=== PATIENT | male | born 1990 | race Caucasian/White ===

== ENCOUNTER 2017-07-01 20:41 | Inpatient (IN) | payer OTHER ==
[~2017-07-01] VITALS: Ht 170.2 cm; Wt 199.6 kg
[2017-07-01 21:07] VITALS: BP 129/65
--- NOTE | 2017-07-01 21:36 | Emergency Room Report ---
History of Present Illness General Chief Complaint: Nausea, Vomiting, and Diarrhea Source: Patient Present Illness HPI Patient is a 26 year-old male who presented after increased nausea and vomiting and diarhea. Patient stopped using heroin one week ago. Recently started new medications. Patient was noted to have increased fever associated with difficulty breathing. He reported having increased fever and body aches. He normally uses CPAP. Allergies: Coded Allergies: No Known Allergies (Unverified , 07/01/17) Patient History Reviewed Nursing Documentation: PMH: Agreed, PSxH: Agreed Nursing Documentation-PMH History Of Psychiatric Problem: Yes - anxiety, panic attack, depression Review of Systems All Other Systems: negative except mentioned in HPI Physical Exam Vital Signs Date Time Temp Pulse Resp B/P (MAP) Pulse Ox O2 Delivery O2 Flow Rate FiO2 07/01/17 20:48 98.8 129 28 129/65 89 Room Air Sp02 EP Interpretation: reviewed, normal General Appearance: normal inspection, alert, GCS 15, moderate distress, obese , Chronically Ill Head: atraumatic ENT: normal ENT inspection, hearing grossly normal, normal voice Neck: normal inspection, full range of motion, supple, no bony tend Respiratory: normal inspection, lungs clear, normal breath sounds, no retraction, no wheezing Cardiovascular #1: regular rate, rhythm, no edema Gastrointestinal: normal inspection, normal bowel sounds, non tender, soft, no guarding, no hernia Genitourinary: no CVA tenderness Musculoskeletal: normal inspection, back normal, normal range of motion, swelling - bilateral edema Neurologic: normal inspection, alert, oriented x3, responsive, breakfast host III-XII nml as tested, speech normal Psychiatric: normal inspection, judgement/insight normal, mood/affect normal Skin: other - bilateral lower extremity erythemas, some pustules Medical Decision Making Diagnostic Impression: Primary Impression: Cellulitis Additional Impression: Hx of opioid abuse ER Course Patient presented for abdominal pain. Differential diagnoses included opiate withdrawal, ischemic bowel, appendicitis, perforated viscus, abdominal aortic aneurysm, inferior myocardial infarction, viral gastroenteritis. Because of complexity of patient's case laboratory testing and imaging studies were ordered. Laboratory studies showed normal white blood count. Patient was noted to have a fever up to 1 emergency department. He was noted to have some erythema and warmth both lower extremities worse on the right. The patient was started on IV fluids as well as IV antibiotics. He was given Tylenol. The patient was noted to have sleep apnea and started on CPAP. Patient was noted to be persistently tachycardic. Dr. Dereje Martin was contacted for inpatient management Labs Test 07/02/17 00:20 White Blood Count 6.4 K/UL (4.8-10.8) Red Blood Count 4.80 M/UL (4.70-6.10) Hemoglobin 13.6 G/DL (14.2-18.0) Hematocrit 41.6 % (42.0-52.0) Mean Corpuscular Volume 87 FL (80-99) Mean Corpuscular Hemoglobin 28.3 PG (27.0-31.0) Mean Corpuscular Hemoglobin Concent 32.7 G/DL (32.0-36.0) Red Cell Distribution Width 13.8 % (11.6-14.8) Platelet Count 200 K/UL (150-450) Mean Platelet Volume 7.2 FL (6.5-10.1) Neutrophils (%) (Auto) % (45.0-75.0) Lymphocytes (%) (Auto) % (20.0-45.0) Monocytes (%) (Auto) % (1.0-10.0) Eosinophils (%) (Auto) % (0.0-3.0) Basophils (%) (Auto) % (0.0-2.0) Sodium Level 140 MMOL/L (136-145) Potassium Level 2.8 MMOL/L (3.5-5.1) Chloride Level 100 MMOL/L (98-107) Carbon Dioxide Level 31 MMOL/L (21-32) Anion Gap 10 mmol/L (5-15) Blood Urea Nitrogen 22 mg/dL (7-18) Creatinine 0.8 MG/DL (0.55-1.30) Estimat Glomerular Filtration Rate > 60 mL/min (>60) Glucose Level 128 MG/DL (74-106) Calcium Level 8.1 MG/DL (8.5-10.1) Total Bilirubin 0.4 MG/DL (0.2-1.0) Aspartate Amino Transf (AST/SGOT) 49 U/L (15-37) Alanine Aminotransferase (ALT/SGPT) 60 U/L (12-78) Alkaline Phosphatase 75 U/L (46-116) Total Protein 6.6 G/DL (6.4-8.2) Albumin 2.9 G/DL (3.4-5.0) Globulin 3.7 g/dL Albumin/Globulin Ratio 0.8 (1.0-2.7) Last Vital Signs Date Time Temp Pulse Resp B/P (MAP) Pulse Ox O2 Delivery O2 Flow Rate FiO2 07/01/17 21:07 98.8 113 28 129/65 89 Room Air Status: unchanged Disposition: ADMITTED INPATIENT Condition: Serious Tha Garnica Jul 01, 2017 21:36
[2017-07-01] MEDS ORDERED: cefTRIAXone 1 GM in NS 55 ML IVPB ONE (23:15)
[2017-07-01] MEDS ORDERED: Albuterol/Ipratropium 3ml neb HHN ONE (23:15)
[2017-07-01] MEDS ORDERED: Albuterol/Ipratropium 3ml neb ONE (23:21)
[2017-07-01] MEDS ORDERED: SERTRALINE HCL25 MG ORAL (23:24)
[2017-07-01] MEDS ORDERED: CATAPRES0.1 MG ORAL (23:24)
[2017-07-01] MEDS ORDERED: QUETIAPINE FUMA50 MG ORAL (23:24)
[2017-07-01] MEDS ORDERED: GABAPENTIN300 MG ORAL (23:24)
[2017-07-01] MEDS ORDERED: MAPAP325 MG/10. PO (23:24)
[2017-07-01] MEDS ORDERED: HYDROXYZINE HCL25 M1 PO (23:24)
[2017-07-01] MEDS ORDERED: BACLOFEN10 MG ORAL (23:24)
[2017-07-01] MEDS ORDERED: NAPROXEN500 M2 ORAL (23:24)
[2017-07-01] MEDS ORDERED: Vancomycin 1 GM in D5W 275 ML IVPB SCH (23:30)
[2017-07-01 23:43] VITALS: BP 117/45
[2017-07-02] VITALS (7 sets, daily range): BP systolic 105–134; BP diastolic 35–71
[2017-07-02] MEDS ORDERED: Miralax 17gm pkt ORAL PRN
[2017-07-02] MEDS ORDERED: Nitroglycerin Subl 0.4mg tab SL PRN
[2017-07-02] MEDS ORDERED: Albuterol/Ipratropium 3ml neb HHN PRN
[2017-07-02] MEDS ORDERED: Morphine Sulfate 2mg/ml Inj IVP PRN
[2017-07-02] MEDS ORDERED: Vancomycin 1.5gm/D5W 250ml 250 ML IVPB ONE (00:27)
[2017-07-02] MEDS ORDERED: Vancomycin 1 GM in D5W 275 ML IV SCH (00:30)
[2017-07-02 00:43] LABS: HEMATOCRIT 41.6 % (42.0-52.0); HEMOGLOBIN 13.6 G/DL (14.2-18.0); MEAN CORPUSCULAR VOLUME 87 FL (80-99); PLATELET COUNT 200 K/UL (150-450); RED CELL DISTRIBUTION WIDTH 13.8 % (11.6-14.8); WHITE BLOOD COUNT 6.4 K/UL (4.8-10.8)
[2017-07-02 00:52] LABS: ALANINE AMINOTRANSFERASE 60 U/L (12-78); ALBUMIN 2.9 G/DL (3.4-5.0); ALBUMIN/GLOBULIN RATIO 0.8 (1.0-2.7); ALKALINE PHOSPHATASE 75 U/L (46-116); ANION GAP 10 mmol/L (5-15); ASPARTATE AMINO TRANSFERASE 49 U/L (15-37); BILIRUBIN,TOTAL 0.4 MG/DL (0.2-1.0); BLOOD UREA NITROGEN 22 mg/dL (7-18); CALCIUM 8.1 MG/DL (8.5-10.1); CARBON DIOXIDE 31 MMOL/L (21-32); CHLORIDE 100 MMOL/L (98-107); CREATININE 0.8 MG/DL (0.55-1.30); POTASSIUM 2.8 MMOL/L (3.5-5.1); SODIUM 140 MMOL/L (136-145)
[2017-07-02 01:34] LABS: APPEARANCE,URINE CLEAR; BILIRUBIN, URINE NEGATIVE (NEGATIVE); GLUCOSE, URINE (UA) NEGATIVE (NEGATIVE); KETONES,URINE NEGATIVE (NEGATIVE); LEUKOCYTE ESTERASE ,URINE NEGATIVE (NEGATIVE); NITRITE,URINE NEGATIVE (NEGATIVE); PH,URINE 6 (4.5-8.0); PROTEIN,URINE NEGATIVE (NEGATIVE); UROBILINOGEN,URINE NORMAL MG/DL (0.0-1.0)
[2017-07-02 01:41] LABS: COLOR,URINE YELLOW
[2017-07-02 02:17] LABS: HEMATOCRIT 41.5 % (42.0-52.0); HEMOGLOBIN 13.4 G/DL (14.2-18.0); MEAN CORPUSCULAR VOLUME 87 FL (80-99); RED BLOOD COUNT 4.79 M/UL (4.70-6.10); WHITE BLOOD COUNT 6.7 K/UL (4.8-10.8)
[2017-07-02 02:18] LABS: PLATELET COUNT 205 K/UL (150-450); RED CELL DISTRIBUTION WIDTH 13.9 % (11.6-14.8)
[2017-07-02 02:19] LABS: CARBON DIOXIDE 32 MMOL/L (21-32); CHLORIDE 101 MMOL/L (98-107); POTASSIUM 3.1 MMOL/L (3.5-5.1); SODIUM 141 MMOL/L (136-145)
[2017-07-02 02:20] LABS: ALANINE AMINOTRANSFERASE 62 U/L (12-78); ANION GAP 8 mmol/L (5-15); ASPARTATE AMINO TRANSFERASE 51 U/L (15-37); BILIRUBIN,TOTAL 0.5 MG/DL (0.2-1.0); BLOOD UREA NITROGEN 23 mg/dL (7-18); CALCIUM 8.5 MG/DL (8.5-10.1); CREATININE 0.9 MG/DL (0.55-1.30)
[2017-07-02 02:21] LABS: ALKALINE PHOSPHATASE 76 U/L (46-116)
[2017-07-02] MEDS: Cefepime HCl 2 GM in NS 110 ML IV SCH ×2 (08:25→20:48)
[2017-07-02] MEDS: Heparin 5000 units/ml inj SUBQ SCH ×2 (08:29→20:49)
[2017-07-02] MEDS: Sertraline 100mg tab ORAL SCH (08:29)
[2017-07-02] MEDS: Vancomycin 2gm/D5W 550ml IVPB SCH ×4 (09:41→17:07)
[2017-07-02] MEDS ORDERED: ALPRAZolam 0.5mg tab ORAL PRN (14:00)
--- NOTE | 2017-07-02 14:17 | Diagnostic Imaging Report ---
Indication: Dyspnea Comparison: None A single view chest radiograph was obtained. Findings: Cardiomediastinal appearance is within normal limits for age. Pulmonary vascularity is appropriate. The diaphragmatic contour is smooth and costophrenic angles are sharp. No pleural effusions are identified. The bones are unremarkable. Impression: No acute findings
--- NOTE | 2017-07-02 16:15 | Consultation ---
History of Present Illness General Date patient seen: Jul 02, 2017 Time patient seen: 16:09 Chief Complaint: Nausea, Vomiting, and Diarrhea Present Illness HPI 26 y/o M with hx of Anxiety, panic attacks, MDD, morbid obesity, SADA on CPAP presents to ED on 07/01 with worsening nausea, vomiting and dairrhea. Also fever, SOB, body aches. OF note, he reported stop using heroin 1 week ago. Denies cough, runny nose, rash, GAMEZ, urinary symptoms. Allergies: Coded Allergies: No Known Allergies (Unverified , 07/01/17) Medication History Scheduled Acetaminophen (Mapap), 325 MG PO Q6HR, (Reported) Baclofen* (Baclofen*), 20 MG ORAL THREE TIMES A DAY, (Reported) Clonidine Hcl* (Catapres*), 0.1 MG ORAL EVERY 6 HOURS, (Reported) Gabapentin* (Gabapentin*), 300 MG ORAL THREE TIMES A DAY, (Reported) Hydroxyzine Hcl (Hydroxyzine Hcl), 25 MG PO Q6HR, (Reported) Naproxen* (Naproxen*), 500 MG ORAL ONCE, (Reported) Quetiapine Fumarate* (Quetiapine Fumarate*), 100 MG ORAL DAILY, (Reported) Sertraline Hcl* (Sertraline Hcl*), 100 MG ORAL DAILY, (Reported) Patient History Healthcare decision maker Resuscitation status Full Code Advanced Directive on File Patient History Narrative Pmhx: as above Sh: reviewed Fhx: non contributory Review of Systems All Other Systems: negative except mentioned in HPI Physical Exam Physical Exam Narrative General Appearance: normal inspection, alert,morbidly obese, Chronically Ill Head: atraumatic ENT: normal ENT inspection, hearing grossly normal, normal voice Neck: normal inspection, full range of motion, supple, no bony tend Respiratory: normal inspection, lungs clear, normal breath sounds, no retraction, no wheezing Cardiovascular regular rate, rhythm, no edema Gastrointestinal: normal inspection, normal bowel sounds, non tender, soft, no guarding, no hernia Genitourinary: no CVA tenderness Musculoskeletal: normal inspection, back normal, normal range of motion, swelling - bilateral edema Skin: other - bilateral lower extremity erythemas, some pustules Last 24 Hour Vital Signs Date Time Temp Pulse Resp B/P (MAP) Pulse Ox O2 Delivery O2 Flow Rate FiO2 07/02/17 12:26 128/71 07/02/17 12:00 79 07/02/17 12:00 98.3 85 19 129/63 95 07/02/17 08:00 84 07/02/17 08:00 97.5 88 19 123/71 96 07/02/17 06:23 128/62 07/02/17 05:52 89 07/02/17 04:00 97.7 95 22 127/54 95 07/02/17 03:25 98.7 96 16 134/58 98 Nasal Cannula 2.0 30 07/02/17 03:15 98.7 96 16 134/58 98 Nasal Cannula 2.0 07/02/17 01:45 101 16 125/53 96 15.0 07/02/17 01:27 70 16 Bi-pap 07/02/17 01:27 105 14 98 Facial 30 07/01/17 23:45 115 20 97 Room Air 21 07/01/17 23:43 101.2 110 17 117/45 92 Room Air 07/01/17 23:30 110 20 92 Room Air 21 07/01/17 22:18 139/56 07/01/17 21:07 98.8 113 28 129/65 89 Room Air 07/01/17 20:48 98.8 129 28 129/65 89 Room Air Intake and Output 07/01/17 07/02/17 19:00 07:00 Intake Total 1330 ml Balance 1330 ml Intake Oral 0 ml IV Total 1330 ml Laboratory Tests Test 07/01/17 21:19 07/01/17 23:22 07/02/17 00:20 07/02/17 01:00 White Blood Count 6.7 K/UL (4.8-10.8) 6.4 K/UL (4.8-10.8) Red Blood Count 4.79 M/UL (4.70-6.10) 4.80 M/UL (4.70-6.10) Hemoglobin 13.4 G/DL (14.2-18.0) L 13.6 G/DL (14.2-18.0) L Hematocrit 41.5 % (42.0-52.0) L 41.6 % (42.0-52.0) L Mean Corpuscular Volume 87 FL (80-99) 87 FL (80-99) Mean Corpuscular Hemoglobin 28.0 PG (27.0-31.0) 28.3 PG (27.0-31.0) Mean Corpuscular Hemoglobin Concent 32.3 G/DL (32.0-36.0) 32.7 G/DL (32.0-36.0) Red Cell Distribution Width 13.9 % (11.6-14.8) 13.8 % (11.6-14.8) Platelet Count 205 K/UL (150-450) 200 K/UL (150-450) Mean Platelet Volume 7.9 FL (6.5-10.1) 7.2 FL (6.5-10.1) Neutrophils (%) (Auto) % (45.0-75.0) % (45.0-75.0) Lymphocytes (%) (Auto) % (20.0-45.0) % (20.0-45.0) Monocytes (%) (Auto) % (1.0-10.0) % (1.0-10.0) Eosinophils (%) (Auto) % (0.0-3.0) % (0.0-3.0) Basophils (%) (Auto) % (0.0-2.0) % (0.0-2.0) Sodium Level 141 MMOL/L (136-145) 140 MMOL/L (136-145) Potassium Level 3.1 MMOL/L (3.5-5.1) L 2.8 MMOL/L (3.5-5.1) L Chloride Level 101 MMOL/L (98-107) 100 MMOL/L (98-107) Carbon Dioxide Level 32 MMOL/L (21-32) 31 MMOL/L (21-32) Anion Gap 8 mmol/L (5-15) 10 mmol/L (5-15) Blood Urea Nitrogen 23 mg/dL (7-18) H 22 mg/dL (7-18) H Creatinine 0.9 MG/DL (0.55-1.30) 0.8 MG/DL (0.55-1.30) Estimat Glomerular Filtration Rate > 60 mL/min (>60) > 60 mL/min (>60) Glucose Level 123 MG/DL (74-106) H 128 MG/DL (74-106) H Calcium Level 8.5 MG/DL (8.5-10.1) 8.1 MG/DL (8.5-10.1) L Total Bilirubin 0.5 MG/DL (0.2-1.0) 0.4 MG/DL (0.2-1.0) Aspartate Amino Transf (AST/SGOT) 51 U/L (15-37) H 49 U/L (15-37) H Alanine Aminotransferase (ALT/SGPT) 62 U/L (12-78) 60 U/L (12-78) Alkaline Phosphatase 76 U/L (46-116) 75 U/L (46-116) Troponin I 0.000 ng/mL (0.000-0.056) Total Protein 6.7 G/DL (6.4-8.2) 6.6 G/DL (6.4-8.2) Albumin 3.0 G/DL (3.4-5.0) L 2.9 G/DL (3.4-5.0) L Globulin 3.7 g/dL 3.7 g/dL Lipase 54 U/L (73-393) L Lactic Acid Level 1.60 mmol/L (0.66-2.22) Albumin/Globulin Ratio 0.8 (1.0-2.7) L Urine Color Yellow Urine Appearance Clear Urine pH 6 (4.5-8.0) Urine Specific [place] 1.015 (1.005-1.035) Urine Protein Negative (NEGATIVE) Urine Glucose (UA) Negative (NEGATIVE) Urine Ketones Negative (NEGATIVE) Urine Occult Blood Negative (NEGATIVE) Urine Nitrite Negative (NEGATIVE) Urine Bilirubin Negative (NEGATIVE) Urine Urobilinogen Normal MG/DL (0.0-1.0) Urine Leukocyte Esterase Negative (NEGATIVE) Microbiology Date/Time Source Procedure Growth Status 07/01/17 22:30 Nasal Nares Influenza Types A,B Antigen (MARSHALL) - Final Complete Height (Feet): 5 Height (Inches): 7.00 Weight (Pounds): 440 Medications Current Medications Medications (Trade) Dose Ordered Sig/Minoo Route PRN Reason Start Time Stop Time Status Last Admin Dose Admin Acetaminophen (Tylenol) 650 mg Q4H PRN ORAL fever 07/02/17 00:00 08/01/17 00:00 Albuterol/ Ipratropium (Albuterol/ Ipratropium) 3 ml Q4H PRN HHN Shortness of Breath 07/02/17 00:00 07/07/17 00:00 Alprazolam (Xanax) 0.5 mg Q8H PRN ORAL For Anxiety 07/02/17 14:00 07/09/17 13:59 Baclofen (Lioresal) 20 mg TID ORAL 07/02/17 09:00 08/01/17 08:59 07/02/17 12:25 Cefepime HCl 2 gm/ Sodium Chloride 110 ml @ 220 mls/hr EVERY 12 HOURS IV 07/02/17 09:00 07/09/17 08:59 07/02/17 08:25 Clonidine HCl (Catapres Tab) 0.1 mg EVERY 6 HOURS ORAL 07/02/17 06:00 08/01/17 05:59 07/02/17 12:26 Dextrose (Dextrose 50%) STAT PRN IV Hypoglycemia 07/02/17 00:00 08/01/17 00:00 Gabapentin (Neurontin) 300 mg THREE TIMES A DAY ORAL 07/02/17 09:00 08/01/17 08:59 07/02/17 12:26 Heparin Sodium (Porcine) (Heparin 5000 units/ml) 5,000 units EVERY 12 HOURS SUBQ 07/02/17 09:00 08/01/17 08:59 Morphine Sulfate (Morphine Sulfate) 2 mg Q4H PRN IVP Moderate Pain (Pain Scale 4-6) 07/02/17 00:00 07/09/17 00:00 Nitroglycerin (Ntg) 0.4 mg Every 5 Minutes PRN SL Prn Chest Pain 07/02/17 00:00 08/01/17 00:00 Ondansetron HCl (Zofran) 4 mg Q6H PRN IVP Nausea & Vomiting 07/02/17 00:00 08/01/17 00:00 Polyethylene Glycol (Miralax) 17 gm DAILYPRN PRN ORAL Constipation 07/02/17 00:00 08/01/17 00:00 Quetiapine Fumarate (SEROquel) 100 mg DAILY ORAL 07/02/17 09:00 08/01/17 08:59 07/02/17 08:27 Sertraline HCl (Zoloft) 100 mg DAILY ORAL 07/02/17 09:00 08/01/17 08:59 07/02/17 08:29 Temazepam (Restoril) 15 mg HSPRN PRN ORAL Insomnia 07/02/17 13:45 07/09/17 00:00 Vancomycin HCl (Vanco rx to dose) 1 ea DAILY PRN MISC per protocol 07/02/17 02:15 08/01/17 02:14 Vancomycin HCl 2 gm/Dextrose 550 ml @ 275 mls/hr Q8H IVPB 07/02/17 08:00 07/07/17 07:59 07/02/17 09:41 Assessment/Plan Assessment/Plan ABX: Ceftriaxone x1 07/01 Cefepime 07/02- IV Vancomcyin 07/01- Assessment: Flu-like symptoms, n/v/d- likely due to heroin/opioid withdrawal- r/o acute HIV , bacteremia/endocarditis (given IVDA) -Influenza neg Fever- 2ry to above -u/a neg -CXR: No acute findings BLE Cellulitis- in setting of lymphedema Heroin abuse Anxiety, panic attacks, MDD, morbid obesity, SADA on CPAP Plan: -Continue IV vanco and Cefepime abx d#2 for now pending Bcx -if Bcx remains negative, will switch to Ancef for cellulitis -f/u cx -Check HIV ab and VL -Monitor CBC/BMP, temperatures Thank you for this consultation. Will continue to follow along with you. Discussed with Brianna South M.D. Jul 02, 2017 16:15
--- NOTE | 2017-07-02 17:02 | History & Physical ---
History and Physical History & Physicial Dictated for Int Med-Dr Martin no. [id number]. ALVA JEAN BAPTISTE Jul 02, 2017 17:02
--- NOTE | 2017-07-02 18:24 | Consultation ---
History of Present Illness General Date patient seen: Jul 02, 2017 Chief Complaint: Nausea, Vomiting, and Diarrhea Present Illness HPI 26 year-old male with hx of IVDA, heroin, obstructive sleep apnea presented with cc of increased nausea and vomiting and diarhea. Patient stopped using heroin one week ago. . Patient was noted to have increased fever associated with difficulty breathing. He reported having increased fever and body aches. Allergies: Coded Allergies: No Known Allergies (Unverified , 07/01/17) Medication History Scheduled Acetaminophen (Mapap), 325 MG PO Q6HR, (Reported) Baclofen* (Baclofen*), 20 MG ORAL THREE TIMES A DAY, (Reported) Clonidine Hcl* (Catapres*), 0.1 MG ORAL EVERY 6 HOURS, (Reported) Gabapentin* (Gabapentin*), 300 MG ORAL THREE TIMES A DAY, (Reported) Hydroxyzine Hcl (Hydroxyzine Hcl), 25 MG PO Q6HR, (Reported) Naproxen* (Naproxen*), 500 MG ORAL ONCE, (Reported) Quetiapine Fumarate* (Quetiapine Fumarate*), 100 MG ORAL DAILY, (Reported) Sertraline Hcl* (Sertraline Hcl*), 100 MG ORAL DAILY, (Reported) Patient History Healthcare decision maker Resuscitation status Full Code Advanced Directive on File Past Medical/Surgical History Past Medical/Surgical History: (1) Hx of opioid abuse Review of Systems All Other Systems: negative except mentioned in HPI Physical Exam General Appearance: morbidly obese Lines, tubes and drains: peripheral, PICC HEENT: normocephalic, atraumatic Neck: non-tender, normal alignment Respiratory/Chest: chest wall non-tender, lungs clear Breasts: no masses Cardiovascular/Chest: normal peripheral pulses Abdomen: normal bowel sounds Genitourinary/Rectal: normal genital exam Last 24 Hour Vital Signs Date Time Temp Pulse Resp B/P (MAP) Pulse Ox O2 Delivery O2 Flow Rate FiO2 07/02/17 12:26 128/71 07/02/17 12:00 79 07/02/17 12:00 98.3 85 19 129/63 95 07/02/17 08:00 84 07/02/17 08:00 97.5 88 19 123/71 96 07/02/17 06:23 128/62 07/02/17 05:52 89 07/02/17 04:00 97.7 95 22 127/54 95 07/02/17 03:25 98.7 96 16 134/58 98 Nasal Cannula 2.0 30 07/02/17 03:15 98.7 96 16 134/58 98 Nasal Cannula 2.0 07/02/17 01:45 101 16 125/53 96 15.0 07/02/17 01:27 70 16 Bi-pap 07/02/17 01:27 105 14 98 Facial 30 07/01/17 23:45 115 20 97 Room Air 21 07/01/17 23:43 101.2 110 17 117/45 92 Room Air 07/01/17 23:30 110 20 92 Room Air 21 07/01/17 22:18 139/56 07/01/17 21:07 98.8 113 28 129/65 89 Room Air 07/01/17 20:48 98.8 129 28 129/65 89 Room Air Intake and Output 07/01/17 07/02/17 19:00 07:00 Intake Total 1330 ml Balance 1330 ml Intake Oral 0 ml IV Total 1330 ml Laboratory Tests Test 07/01/17 21:19 07/01/17 23:22 07/02/17 00:20 07/02/17 01:00 White Blood Count 6.7 K/UL (4.8-10.8) 6.4 K/UL (4.8-10.8) Red Blood Count 4.79 M/UL (4.70-6.10) 4.80 M/UL (4.70-6.10) Hemoglobin 13.4 G/DL (14.2-18.0) L 13.6 G/DL (14.2-18.0) L Hematocrit 41.5 % (42.0-52.0) L 41.6 % (42.0-52.0) L Mean Corpuscular Volume 87 FL (80-99) 87 FL (80-99) Mean Corpuscular Hemoglobin 28.0 PG (27.0-31.0) 28.3 PG (27.0-31.0) Mean Corpuscular Hemoglobin Concent 32.3 G/DL (32.0-36.0) 32.7 G/DL (32.0-36.0) Red Cell Distribution Width 13.9 % (11.6-14.8) 13.8 % (11.6-14.8) Platelet Count 205 K/UL (150-450) 200 K/UL (150-450) Mean Platelet Volume 7.9 FL (6.5-10.1) 7.2 FL (6.5-10.1) Neutrophils (%) (Auto) % (45.0-75.0) % (45.0-75.0) Lymphocytes (%) (Auto) % (20.0-45.0) % (20.0-45.0) Monocytes (%) (Auto) % (1.0-10.0) % (1.0-10.0) Eosinophils (%) (Auto) % (0.0-3.0) % (0.0-3.0) Basophils (%) (Auto) % (0.0-2.0) % (0.0-2.0) Sodium Level 141 MMOL/L (136-145) 140 MMOL/L (136-145) Potassium Level 3.1 MMOL/L (3.5-5.1) L 2.8 MMOL/L (3.5-5.1) L Chloride Level 101 MMOL/L (98-107) 100 MMOL/L (98-107) Carbon Dioxide Level 32 MMOL/L (21-32) 31 MMOL/L (21-32) Anion Gap 8 mmol/L (5-15) 10 mmol/L (5-15) Blood Urea Nitrogen 23 mg/dL (7-18) H 22 mg/dL (7-18) H Creatinine 0.9 MG/DL (0.55-1.30) 0.8 MG/DL (0.55-1.30) Estimat Glomerular Filtration Rate > 60 mL/min (>60) > 60 mL/min (>60) Glucose Level 123 MG/DL (74-106) H 128 MG/DL (74-106) H Calcium Level 8.5 MG/DL (8.5-10.1) 8.1 MG/DL (8.5-10.1) L Total Bilirubin 0.5 MG/DL (0.2-1.0) 0.4 MG/DL (0.2-1.0) Aspartate Amino Transf (AST/SGOT) 51 U/L (15-37) H 49 U/L (15-37) H Alanine Aminotransferase (ALT/SGPT) 62 U/L (12-78) 60 U/L (12-78) Alkaline Phosphatase 76 U/L (46-116) 75 U/L (46-116) Troponin I 0.000 ng/mL (0.000-0.056) Total Protein 6.7 G/DL (6.4-8.2) 6.6 G/DL (6.4-8.2) Albumin 3.0 G/DL (3.4-5.0) L 2.9 G/DL (3.4-5.0) L Globulin 3.7 g/dL 3.7 g/dL Lipase 54 U/L (73-393) L Lactic Acid Level 1.60 mmol/L (0.66-2.22) Albumin/Globulin Ratio 0.8 (1.0-2.7) L Urine Color Yellow Urine Appearance Clear Urine pH 6 (4.5-8.0) Urine Specific [place] 1.015 (1.005-1.035) Urine Protein Negative (NEGATIVE) Urine Glucose (UA) Negative (NEGATIVE) Urine Ketones Negative (NEGATIVE) Urine Occult Blood Negative (NEGATIVE) Urine Nitrite Negative (NEGATIVE) Urine Bilirubin Negative (NEGATIVE) Urine Urobilinogen Normal MG/DL (0.0-1.0) Urine Leukocyte Esterase Negative (NEGATIVE) Urine Opiates Screen Negative (NEGATIVE) Urine Barbiturates Screen Negative (NEGATIVE) Phencyclidine (PCP) Screen Negative (NEGATIVE) Urine Amphetamines Screen Negative (NEGATIVE) Urine Benzodiazepines Screen Negative (NEGATIVE) Urine Cocaine Screen Negative (NEGATIVE) Urine Marijuana (THC) Screen Negative (NEGATIVE) Microbiology Date/Time Source Procedure Growth Status 07/01/17 22:30 Nasal Nares Influenza Types A,B Antigen (MARSHALL) - Final Complete Height (Feet): 5 Height (Inches): 7.00 Weight (Pounds): 440 Medications Current Medications Medications (Trade) Dose Ordered Sig/Minoo Route PRN Reason Start Time Stop Time Status Last Admin Dose Admin Acetaminophen (Tylenol) 650 mg Q4H PRN ORAL fever 07/02/17 00:00 08/01/17 00:00 Albuterol/ Ipratropium (Albuterol/ Ipratropium) 3 ml Q4H PRN HHN Shortness of Breath 07/02/17 00:00 07/07/17 00:00 Alprazolam (Xanax) 0.5 mg Q8H PRN ORAL For Anxiety 07/02/17 14:00 07/09/17 13:59 Baclofen (Lioresal) 20 mg TID ORAL 07/02/17 09:00 08/01/17 08:59 07/02/17 17:06 Cefepime HCl 2 gm/ Sodium Chloride 110 ml @ 220 mls/hr EVERY 12 HOURS IV 07/02/17 09:00 07/09/17 08:59 07/02/17 08:25 Clonidine HCl (Catapres Tab) 0.1 mg EVERY 6 HOURS ORAL 07/02/17 06:00 08/01/17 05:59 07/02/17 12:26 Dextrose (Dextrose 50%) STAT PRN IV Hypoglycemia 07/02/17 00:00 08/01/17 00:00 Gabapentin (Neurontin) 300 mg THREE TIMES A DAY ORAL 07/02/17 09:00 08/01/17 08:59 07/02/17 17:06 Heparin Sodium (Porcine) (Heparin 5000 units/ml) 5,000 units EVERY 12 HOURS SUBQ 07/02/17 09:00 08/01/17 08:59 Morphine Sulfate (Morphine Sulfate) 2 mg Q4H PRN IVP Moderate Pain (Pain Scale 4-6) 07/02/17 00:00 07/09/17 00:00 Nitroglycerin (Ntg) 0.4 mg Every 5 Minutes PRN SL Prn Chest Pain 07/02/17 00:00 08/01/17 00:00 Ondansetron HCl (Zofran) 4 mg Q6H PRN IVP Nausea & Vomiting 07/02/17 00:00 08/01/17 00:00 Polyethylene Glycol (Miralax) 17 gm DAILYPRN PRN ORAL Constipation 07/02/17 00:00 08/01/17 00:00 Quetiapine Fumarate (SEROquel) 100 mg DAILY ORAL 07/02/17 09:00 08/01/17 08:59 07/02/17 08:27 Sertraline HCl (Zoloft) 100 mg DAILY ORAL 07/02/17 09:00 08/01/17 08:59 07/02/17 08:29 Temazepam (Restoril) 15 mg HSPRN PRN ORAL Insomnia 07/02/17 13:45 07/09/17 00:00 Vancomycin HCl (Vanco rx to dose) 1 ea DAILY PRN MISC per protocol 07/02/17 02:15 08/01/17 02:14 Vancomycin HCl 2 gm/Dextrose 550 ml @ 275 mls/hr Q8H IVPB 07/02/17 08:00 07/07/17 07:59 07/02/17 17:07 Assessment/Plan Problem List: (1) Intractable diarrhea ICD Codes: R19.7 - Diarrhea, unspecified SNOMED: 459975148 (2) Fever ICD Codes: R50.9 - Fever, unspecified SNOMED: 001747278 (3) Hx of opioid abuse ICD Codes: Z87.898 - Personal history of other specified conditions SNOMED: 148386549 Assessment/Plan sepulveda cultures ID evaluaiton symptomatic treatment. check electrolytes CPAP at night. AINSLEY CELESTE Jul 02, 2017 18:24
--- NOTE | 2017-07-02 23:00 | History and Physical Report ---
DATE OF ADMISSION: 07/01/2017 CHIEF COMPLAINT: The patient is a 26-year-old white male, presents with chief complaint of nausea, vomiting, and anxiety. HISTORY OF PRESENT ILLNESS: The patient is a resident of [facility], sober living facility. The patient was admitted there for heroin withdrawal. The patient states he began to experience panic attack yesterday evening 07/01/2017. The patient had nausea and vomiting x1. The patient also complains of swollen legs. The patient complains of subjective fevers and chills. The patient presented to [place] emergency room. The patient was admitted for nausea, vomiting, fever, and probable panic attack. REVIEW OF SYSTEMS: CONSTITUTIONAL: The patient denies weight loss or weight gain. The patient does complain of subjective fevers and chills. HEENT: The patient denies ear or throat pain. The patient denies headache. CARDIOVASCULAR: The patient complains of palpitations. The patient denies chest pain. CHEST: The patient denies wheezes or shortness of breath. ABDOMINAL: The patient complains of nausea and vomiting x1. The patient denies constipation or diarrhea. GENITOURINARY: The patient denies dysuria or increased frequency of urination. NEUROMUSCULAR: The patient denies seizures or generalized weakness. PAST MEDICAL HISTORY: Significant for: 1. Opiate dependence. 2. Hypertension. 3. Obstructive sleep apnea. 4. Morbid obesity. PAST SURGICAL HISTORY: The patient denies. CURRENT MEDICATIONS: 1. Seroquel 100 mg one tablet p.o. at bedtime. 2. Clonidine 0.1 mg p.o. three times daily. 3. Naprosyn 500 mg p.o. twice daily. 4. Gabapentin 300 mg three tablets p.o. at bedtime. 5. Zoloft 100 mg p.o. daily. ALLERGIES: No known drug allergies. SOCIAL HISTORY: The patient is single and is currently unemployed. The patient admits to tobacco use of one-half pack per day. The patient denies alcohol use. The patient admits to previous intravenous heroin use. The patient denies heroin use for the past week. PHYSICAL EXAMINATION: VITAL SIGNS: Temperature 97.7, respirations 22, pulse 95, and blood pressure 127/54. GENERAL: The patient is a well-developed, well-nourished, obese white male, in no apparent distress. HEENT: Eyes, pupils are equal and responsive to light and accommodation. Extraocular movements are intact. NECK: Supple without lymphadenopathy. CHEST: Lungs are clear to auscultation bilaterally without wheezes or rales. CARDIOVASCULAR: Regular rhythm and rate. S1, S2 normal without murmurs, rubs, or gallops. ABDOMEN: Soft, nontender, and nondistended. Positive bowel sounds. No evidence of hepatosplenomegaly. Currently, no rebound or guarding noted. EXTREMITIES: Negative for clubbing, cyanosis, edema. RECTAL/GENITAL: Refused. NEUROLOGIC: Cranial nerves II through XII are grossly intact without focal deficits. Motor strength is 5/5 bilaterally. Deep tendon reflexes are 2+ plantar. LABORATORY STUDIES: WBC is 6.7, hemoglobin 13.4, hematocrit 41.5, and platelets 205,000. Sodium 141, potassium 3.1, chloride 101, CO2 32, BUN 23, creatinine 0.9, and glucose 123. AST elevated at 51. Troponin normal at 0.0. Urine drug screen is pending. ASSESSMENT: This is a 26-year-old white male with: 1. Opiate dependence. 2. Nausea with vomiting. 3. Fever. 4. History of hypertension. 5. History of obstructive sleep apnea. 6. Major depressive disorder. 7. Morbid obesity. TREATMENT: 1. Fever/nausea/vomiting. An Infectious Disease consultation has been obtained with Dr. Bhardwaj. The patient has been started empirically on vancomycin and cefepime. Blood cultures are pending. We will follow recommendations of Infectious Disease. 2. Opiate dependence. The patient complains of one week of sobriety. The patient's symptoms are classic for opiate withdrawal. A urine toxicology screen is pending. 3. Hypertension. Continue clonidine as above. 4. Obstructive sleep apnea. The patient will be continued on CPAP as above. 5. Major depression. Continue Seroquel and Zoloft as above. 6. Morbid obesity. Santana Melendrez M.D. DR: ROGERS JOB#: [id number] CC:
[2017-07-03] VITALS: BP 110/65
[2017-07-03] MEDS: Vancomycin 2gm/D5W 550ml IVPB SCH ×4 (01:05→08:57)
[2017-07-03 04:00] VITALS: BP 108/67
[2017-07-03 08:00] VITALS: BP 106/58
[2017-07-03] MEDS: Sertraline 100mg tab ORAL SCH ×3 (09:00→11:03)
[2017-07-03] MEDS: Cefepime HCl 2 GM in NS 110 ML IV SCH ×4 (09:00→23:07)
[2017-07-03] MEDS: Heparin 5000 units/ml inj SUBQ SCH ×4 (09:00→21:42)
--- NOTE | 2017-07-03 09:25 | Pulmonology Progress Note ---
Assessment/Plan Assessment/Plan ASSESSMENT Intractable n/v with diarrhea (likely due to heroin w/drawal) Hx of IVDA/heroin SADA morbid obesity BLE cellulitis with lymphedema MDD hypokalemia PLAN OF CARE Urine tox screen negative ID follows influenza, UA negative CXR negative Fup with bl cx ; need to r/o endocarditiis ( high risk due to IVDA) , prel blood cx negat HIV test empiric abx CPAP at night O2 HHN prn Correct lytes as needed resume a/depressant Reinforce abstinence replace K case discussed and evaluated by supervising physician Subjective Allergies: Coded Allergies: No Known Allergies (Unverified , 07/01/17) Subjective transferred to [facility] floor on RA sat stable, no signs of distress, denied chest pain Objective Last 24 Hour Vital Signs Date Time Temp Pulse Resp B/P (MAP) Pulse Ox O2 Delivery O2 Flow Rate FiO2 07/03/17 06:00 107/53 07/03/17 04:00 97.4 77 20 108/67 94 07/03/17 00:00 113/43 07/03/17 00:00 97.6 86 20 110/65 94 07/02/17 20:00 97.9 88 20 115/35 94 07/02/17 20:00 86 07/02/17 16:00 86 07/02/17 16:00 98.2 84 19 105/62 96 07/02/17 12:26 128/71 07/02/17 12:00 79 07/02/17 12:00 98.3 85 19 129/63 95 Intake and Output 07/02/17 07/03/17 19:00 07:00 Intake Total 240 ml Balance 240 ml Intake Oral 240 ml # Voids 5 General Appearance: no acute distress, other - A/A/O x 3 morbidly obese male HEENT: normocephalic, atraumatic, anicteric, mucous membranes moist Respiratory/Chest: lungs clear - with distant lung soubds , no respiratory distress, no accessory muscle use Cardiovascular: normal peripheral pulses, normal rate - distannt heart sounds , no JVD Abdomen: normal bowel sounds, soft, non tender - obese Extremities: pedal pulses normal, other - lymphedema BLE with erythema, mld tenderness on palaption Neurologic/Psychiatric: no motor/sensory deficits, alert, oriented x 3, responsive Musculoskeletal: normal muscle bulk Microbiology Date/Time Source Procedure Growth Status 07/01/17 22:30 Nasal Nares Influenza Types A,B Antigen (MARSHALL) - Final Complete Laboratory Tests 07/03/17 07:30: White Blood Count [Pending], Red Blood Count [Pending], Hemoglobin [Pending], Hematocrit [Pending], Mean Corpuscular Volume [Pending], Mean Corpuscular Hemoglobin [Pending], Mean Corpuscular Hemoglobin Concent [Pending], Red Cell Distribution Width [Pending], Platelet Count [Pending], Mean Platelet Volume [ Pending], Neutrophils (%) (Auto) [Pending], Lymphocytes (%) (Auto) [Pending], Monocytes (%) (Auto) [Pending], Eosinophils (%) (Auto) [Pending], Basophils (%) (Auto) [Pending], Sodium Level [Pending], Potassium Level [Pending], Chloride Level [Pending], Carbon Dioxide Level [Pending], Blood Urea Nitrogen [Pending], Creatinine [Pending], Estimat Glomerular Filtration Rate [Pending], Glucose Level [Pending], Calcium Level [Pending], Magnesium Level [Pending], Total Bilirubin [Pending], Aspartate Amino Transf (AST/SGOT) [Pending], Alanine Aminotransferase (ALT/SGPT) [Pending], Alkaline Phosphatase [Pending], Total Protein [Pending], Albumin [Pending], Globulin [Pending], Vancomycin Level Trough [Pending], Hepatitis A IgM Antibody [Pending], Hepatitis A Antibody Total [Pending], Hepatitis B Surface Antigen [Pending], Hepatitis B Surface Antibody [Pending], Hepatitis B Core Total Antibody [Pending], Hepatitis B Core IgM Antibody [Pending], Hepatitis C Antibody [Pending], HIV-1 RNA (PCR) log10 Value [Pending], HIV-1 RNA Ultraquantitative (PCR) [Pending], HIV (1&2) Antibody Rapid [Pending] Current Medications Medications (Trade) Dose Ordered Sig/Minoo Route PRN Reason Start Time Stop Time Status Last Admin Dose Admin Acetaminophen (Tylenol) 650 mg Q4H PRN ORAL fever 07/02/17 00:00 08/01/17 00:00 Albuterol/ Ipratropium (Albuterol/ Ipratropium) 3 ml Q4H PRN HHN Shortness of Breath 07/02/17 00:00 07/07/17 00:00 Alprazolam (Xanax) 0.5 mg Q8H PRN ORAL For Anxiety 07/02/17 14:00 07/09/17 13:59 Baclofen (Lioresal) 20 mg TID ORAL 07/02/17 09:00 08/01/17 08:59 07/02/17 17:06 Cefepime HCl 2 gm/ Sodium Chloride 110 ml @ 220 mls/hr EVERY 12 HOURS IV 07/02/17 09:00 07/09/17 08:59 07/02/17 20:48 Clonidine HCl (Catapres Tab) 0.1 mg EVERY 6 HOURS ORAL 07/02/17 06:00 08/01/17 05:59 07/02/17 12:26 Dextrose (Dextrose 50%) STAT PRN IV Hypoglycemia 07/02/17 00:00 08/01/17 00:00 Gabapentin (Neurontin) 300 mg THREE TIMES A DAY ORAL 07/02/17 09:00 08/01/17 08:59 07/02/17 17:06 Heparin Sodium (Porcine) (Heparin 5000 units/ml) 5,000 units EVERY 12 HOURS SUBQ 07/02/17 09:00 08/01/17 08:59 07/02/17 20:49 Morphine Sulfate (Morphine Sulfate) 2 mg Q4H PRN IVP Moderate Pain (Pain Scale 4-6) 07/02/17 00:00 07/09/17 00:00 Nitroglycerin (Ntg) 0.4 mg Every 5 Minutes PRN SL Prn Chest Pain 07/02/17 00:00 08/01/17 00:00 Ondansetron HCl (Zofran) 4 mg Q6H PRN IVP Nausea & Vomiting 07/02/17 00:00 08/01/17 00:00 Polyethylene Glycol (Miralax) 17 gm DAILYPRN PRN ORAL Constipation 07/02/17 00:00 08/01/17 00:00 Quetiapine Fumarate (SEROquel) 100 mg DAILY ORAL 07/02/17 09:00 08/01/17 08:59 07/02/17 08:27 Sertraline HCl (Zoloft) 100 mg DAILY ORAL 07/02/17 09:00 08/01/17 08:59 07/02/17 08:29 Temazepam (Restoril) 15 mg HSPRN PRN ORAL Insomnia 07/02/17 13:45 07/09/17 00:00 Vancomycin HCl (Vanco rx to dose) 1 ea DAILY PRN MISC per protocol 07/02/17 02:15 08/01/17 02:14 Vancomycin HCl 2 gm/Dextrose 550 ml @ 275 mls/hr Q8H IVPB 07/02/17 08:00 07/07/17 07:59 07/03/17 08:57 Camron (Sudhakar)Sveta NP Jul 03, 2017 09:25
[2017-07-03 09:27] LABS: BASOPHILS % (AUTO) 1.5 % (0.0-2.0); EOSINOPHILS % (AUTO) 2.2 % (0.0-3.0); HEMATOCRIT 39.2 % (42.0-52.0); HEMOGLOBIN 12.6 G/DL (14.2-18.0); LYMPHOCYTES % (AUTO) 16.4 % (20.0-45.0); MEAN CORPUSCULAR VOLUME 87 FL (80-99); MONOCYTES % (AUTO) 10.6 % (1.0-10.0); NEUTROPHILS % (AUTO) 69.4 % (45.0-75.0); PLATELET COUNT 169 K/UL (150-450); RED CELL DISTRIBUTION WIDTH 13.9 % (11.6-14.8); WHITE BLOOD COUNT 4.2 K/UL (4.8-10.8)
--- NOTE | 2017-07-03 10:24 | Infectious Diseases Prog Note ---
Assessment/Plan Assessment/Plan ABX: Ceftriaxone x1 07/01 Cefepime 07/02- IV Vancomcyin 07/01- Assessment: Flu-like symptoms, n/v/d- likely due to heroin/opioid withdrawal- r/o acute HIV , bacteremia/endocarditis (given IVDA) -Influenza neg -Bcx p Fever- 2ry to above; improving -u/a neg -CXR: No acute findings BLE Cellulitis- in setting of lymphedema Heroin abuse Anxiety, panic attacks, MDD, morbid obesity, SADA on CPAP Plan: -Continue IV vanco #3 pending Bcx -if neg in 24-48hrs, can d/c and switch to IV ancef for cellulitis -d/c Cefepime abx d#2 -07/01 SP Ceftriaxone x1 -f/u cx -f/u HIV ab and VL, hepatitis panel -Monitor CBC/BMP, temperatures Thank you for this consultation. Will continue to follow along with you. Discussed with RN. Subjective Allergies: Coded Allergies: No Known Allergies (Unverified , 07/01/17) Subjective afebrile in ~36hrs at RA no leukocytosis] Bcx p Objective Vital Signs Last 24 Hour Vital Signs Date Time Temp Pulse Resp B/P (MAP) Pulse Ox O2 Delivery O2 Flow Rate FiO2 07/03/17 08:00 97.0 73 21 106/58 93 Room Air 07/03/17 06:00 107/53 07/03/17 04:00 97.4 77 20 108/67 94 07/03/17 00:00 113/43 07/03/17 00:00 97.6 86 20 110/65 94 07/02/17 20:00 97.9 88 20 115/35 94 07/02/17 20:00 86 07/02/17 16:00 86 07/02/17 16:00 98.2 84 19 105/62 96 07/02/17 12:26 128/71 07/02/17 12:00 79 07/02/17 12:00 98.3 85 19 129/63 95 Height (Feet): 5 Height (Inches): 7.00 Weight (Pounds): 440 Objective General Appearance: normal inspection, alert,morbidly obese, Chronically Ill Head: atraumatic ENT: normal ENT inspection, hearing grossly normal, normal voice Neck: normal inspection, full range of motion, supple, no bony tend Respiratory: normal inspection, lungs clear, normal breath sounds, no retraction, no wheezing Cardiovascular regular rate, rhythm, no edema Gastrointestinal: normal inspection, normal bowel sounds, non tender, soft, no guarding, no hernia Genitourinary: no CVA tenderness Musculoskeletal: normal inspection, back normal, normal range of motion, swelling - bilateral edema Skin: other - bilateral lower extremity erythemas, some pustules Microbiology Date/Time Source Procedure Growth Status 07/01/17 22:30 Nasal Nares Influenza Types A,B Antigen (MARSHALL) - Final Complete Laboratory Tests Test 07/03/17 07:30 White Blood Count 4.2 K/UL (4.8-10.8) L Red Blood Count 4.50 M/UL (4.70-6.10) L Hemoglobin 12.6 G/DL (14.2-18.0) L Hematocrit 39.2 % (42.0-52.0) L Mean Corpuscular Volume 87 FL (80-99) Mean Corpuscular Hemoglobin 28.1 PG (27.0-31.0) Mean Corpuscular Hemoglobin Concent 32.3 G/DL (32.0-36.0) Red Cell Distribution Width 13.9 % (11.6-14.8) Platelet Count 169 K/UL (150-450) Mean Platelet Volume 7.5 FL (6.5-10.1) Neutrophils (%) (Auto) 69.4 % (45.0-75.0) Lymphocytes (%) (Auto) 16.4 % (20.0-45.0) L Monocytes (%) (Auto) 10.6 % (1.0-10.0) H Eosinophils (%) (Auto) 2.2 % (0.0-3.0) Basophils (%) (Auto) 1.5 % (0.0-2.0) Sodium Level Pending Potassium Level Pending Chloride Level Pending Carbon Dioxide Level Pending Blood Urea Nitrogen Pending Creatinine Pending Estimat Glomerular Filtration Rate Pending Glucose Level Pending Calcium Level Pending Magnesium Level 2.1 MG/DL (1.8-2.4) Total Bilirubin Pending Aspartate Amino Transf (AST/SGOT) Pending Alanine Aminotransferase (ALT/SGPT) Pending Alkaline Phosphatase Pending Total Protein Pending Albumin Pending Globulin Pending Vancomycin Level Trough Pending Hepatitis A IgM Antibody Pending Hepatitis A Antibody Total Pending Hepatitis B Surface Antigen Pending Hepatitis B Surface Antibody Pending Hepatitis B Core Total Antibody Pending Hepatitis B Core IgM Antibody Pending Hepatitis C Antibody Pending HIV-1 RNA (PCR) log10 Value Pending HIV-1 RNA Ultraquantitative (PCR) Pending HIV (1&2) Antibody Rapid Pending Current Medications Medications (Trade) Dose Ordered Sig/Minoo Route PRN Reason Start Time Stop Time Status Last Admin Dose Admin Acetaminophen (Tylenol) 650 mg Q4H PRN ORAL fever 07/03/17 12:00 08/01/17 00:00 UNV Albuterol/ Ipratropium (Albuterol/ Ipratropium) 3 ml Q4H PRN HHN Shortness of Breath 07/03/17 12:00 07/07/17 00:00 UNV Alprazolam (Xanax) 0.5 mg Q8H PRN ORAL For Anxiety 07/03/17 14:00 07/09/17 13:59 UNV Baclofen (Lioresal) 20 mg TID ORAL 07/03/17 10:30 08/01/17 08:59 UNV Cefepime HCl 2 gm/ Sodium Chloride 110 ml @ 220 mls/hr EVERY 12 HOURS IV 07/03/17 10:30 07/09/17 08:59 UNV Clonidine HCl (Catapres Tab) 0.1 mg EVERY 6 HOURS ORAL 07/03/17 12:00 08/01/17 05:59 UNV Dextrose (Dextrose 50%) STAT PRN IV Hypoglycemia 07/04/17 00:00 08/01/17 00:00 UNV Gabapentin (Neurontin) 300 mg THREE TIMES A DAY ORAL 07/03/17 10:30 08/01/17 08:59 UNV Heparin Sodium (Porcine) (Heparin 5000 units/ml) 5,000 units EVERY 12 HOURS SUBQ 07/03/17 10:30 08/01/17 08:59 UNV Morphine Sulfate (Morphine Sulfate) 2 mg Q4H PRN IVP Moderate Pain (Pain Scale 4-6) 07/03/17 12:00 07/09/17 00:00 UNV Nitroglycerin (Ntg) 0.4 mg Every 5 Minutes PRN SL Prn Chest Pain 07/03/17 10:30 08/01/17 00:00 UNV Ondansetron HCl (Zofran) 4 mg Q6H PRN IVP Nausea & Vomiting 07/03/17 12:00 08/01/17 00:00 UNV Polyethylene Glycol (Miralax) 17 gm DAILYPRN PRN ORAL Constipation 07/04/17 00:00 08/01/17 00:00 UNV Quetiapine Fumarate (SEROquel) 100 mg DAILY ORAL 07/03/17 10:30 08/01/17 08:59 UNV Sertraline HCl (Zoloft) 100 mg DAILY ORAL 07/03/17 10:30 08/01/17 08:59 UNV Temazepam (Restoril) 15 mg HSPRN PRN ORAL Insomnia 07/03/17 13:45 07/09/17 00:00 UNV Vancomycin HCl (Vanco rx to dose) 1 ea DAILY PRN MISC per protocol 07/04/17 09:00 08/01/17 02:14 UNV Vancomycin HCl 2 gm/Dextrose 550 ml @ 275 mls/hr Q8H IVPB 07/03/17 16:00 07/07/17 07:59 UNV Brianna Ward M.D. Jul 03, 2017 10:24
[2017-07-03 10:26] LABS: ALANINE AMINOTRANSFERASE 73 U/L (12-78); ALBUMIN 2.5 G/DL (3.4-5.0); ALBUMIN/GLOBULIN RATIO 0.8 (1.0-2.7); ALKALINE PHOSPHATASE 59 U/L (46-116); ANION GAP 6 mmol/L (5-15); ASPARTATE AMINO TRANSFERASE 72 U/L (15-37); BILIRUBIN,TOTAL 0.4 MG/DL (0.2-1.0); BLOOD UREA NITROGEN 16 mg/dL (7-18); CALCIUM 7.6 MG/DL (8.5-10.1); CARBON DIOXIDE 31 MMOL/L (21-32); CHLORIDE 103 MMOL/L (98-107); CREATININE 0.6 MG/DL (0.55-1.30); POTASSIUM 3.4 MMOL/L (3.5-5.1); SODIUM 140 MMOL/L (136-145)
[2017-07-03] MEDS ORDERED: Albuterol/Ipratropium 3ml neb HHN PRN (10:30)
[2017-07-03] MEDS ORDERED: Miralax 17gm pkt ORAL PRN (10:30)
[2017-07-03] MEDS ORDERED: Nitroglycerin Subl 0.4mg tab SL PRN (10:30)
[2017-07-03 12:05] VITALS: BP 111/64
[2017-07-03 15:22] VITALS: BP 96/56
--- NOTE | 2017-07-03 15:24 | Internal Med Progress Note ---
Subjective Date of Service: Jul 03, 2017 Physician Name Alva Jean Baptiste Attending Physician Dereje Martin MD Current Medications Medications (Trade) Dose Ordered Sig/Minoo Route PRN Reason Start Time Stop Time Status Last Admin Dose Admin Acetaminophen (Tylenol) 650 mg Q4H PRN ORAL fever 07/03/17 10:30 08/01/17 10:29 Albuterol/ Ipratropium (Albuterol/ Ipratropium) 3 ml Q4H PRN HHN Shortness of Breath 07/03/17 10:30 07/07/17 10:29 Alprazolam (Xanax) 0.5 mg Q8H PRN ORAL For Anxiety 07/03/17 10:30 07/09/17 10:29 Baclofen (Lioresal) 20 mg TID ORAL 07/03/17 11:00 08/01/17 10:59 07/03/17 11:03 Cefepime HCl 2 gm/ Sodium Chloride 110 ml @ 220 mls/hr EVERY 12 HOURS IV 07/03/17 11:00 07/09/17 10:59 07/03/17 10:51 Clonidine HCl (Catapres Tab) 0.1 mg EVERY 6 HOURS ORAL 07/03/17 12:00 08/01/17 05:59 Dextrose (Dextrose 50%) STAT PRN IV Hypoglycemia 07/03/17 10:30 08/02/17 10:29 Gabapentin (Neurontin) 300 mg THREE TIMES A DAY ORAL 07/03/17 11:00 08/01/17 10:59 07/03/17 11:03 Heparin Sodium (Porcine) (Heparin 5000 units/ml) 5,000 units EVERY 12 HOURS SUBQ 07/03/17 11:00 08/01/17 10:59 07/03/17 11:04 Morphine Sulfate (Morphine Sulfate) 2 mg Q4H PRN IVP Moderate Pain (Pain Scale 4-6) 07/03/17 10:30 07/09/17 10:29 Nitroglycerin (Ntg) 0.4 mg Every 5 Minutes PRN SL Prn Chest Pain 07/03/17 10:30 08/01/17 00:00 Ondansetron HCl (Zofran) 4 mg Q6H PRN IVP Nausea & Vomiting 07/03/17 12:00 08/01/17 00:00 Polyethylene Glycol (Miralax) 17 gm DAILYPRN PRN ORAL Constipation 07/03/17 10:30 08/02/17 10:29 Quetiapine Fumarate (SEROquel) 100 mg DAILY ORAL 07/03/17 11:00 08/01/17 10:59 07/03/17 11:03 Sertraline HCl (Zoloft) 100 mg DAILY ORAL 07/03/17 11:00 08/01/17 10:59 07/03/17 11:03 Temazepam (Restoril) 15 mg HSPRN PRN ORAL Insomnia 07/03/17 10:30 07/09/17 10:29 Vancomycin HCl (Vanco rx to dose) 1 ea DAILY PRN MISC per protocol 07/03/17 10:30 08/02/17 10:29 Vancomycin HCl 2 gm/Dextrose 550 ml @ 275 mls/hr Q8H IVPB 07/03/17 16:00 07/07/17 07:59 Allergies: Coded Allergies: No Known Allergies (Unverified , 07/01/17) ROS Limited/Unobtainable: No Constitutional: Reports: chills, fever HEENT: Reports: no symptoms Cardiovascular: Reports: no symptoms Respiratory: Reports: no symptoms Gastrointestinal/Abdominal: Reports: abdominal pain, nausea, vomiting Genitourinary: Reports: no symptoms Neurologic/Psychiatric: Reports: no symptoms Subjective 26 YO M admitted with nausea, vomiting and fever. Cover for Shea Trujillo-Dr Martin Objective Last Vital Signs Date Time Temp Pulse Resp B/P (MAP) Pulse Ox O2 Delivery O2 Flow Rate FiO2 07/03/17 12:05 97.0 79 22 111/64 95 07/03/17 08:00 Room Air 07/02/17 03:25 2.0 30 General Appearance: mild distress, lethargic, obese EENT: PERRL/EOMI, normal ENT inspection Neck: non-tender, normal alignment, supple, normal inspection Cardiovascular: normal peripheral pulses, normal rate, regular rhythm, no gallop/murmur, no JVD Respiratory/Chest: chest wall non-tender, lungs clear, normal breath sounds, no respiratory distress, no accessory muscle use Abdomen: no organomegaly, no mass, hypoactive bowel sounds, tender Extremities: normal range of motion, non-tender 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 normal, no motor/sensory deficits Skin: normal pigmentation, warm/dry Laboratory Tests Test 2/3/18 07:30 White Blood Count 4.2 K/UL (4.8-10.8) L Red Blood Count 4.50 M/UL (4.70-6.10) L Hemoglobin 12.6 G/DL (14.2-18.0) L Hematocrit 39.2 % (42.0-52.0) L Mean Corpuscular Volume 87 FL (80-99) Mean Corpuscular Hemoglobin 28.1 PG (27.0-31.0) Mean Corpuscular Hemoglobin Concent 32.3 G/DL (32.0-36.0) Red Cell Distribution Width 13.9 % (11.6-14.8) Platelet Count 169 K/UL (150-450) Mean Platelet Volume 7.5 FL (6.5-10.1) Neutrophils (%) (Auto) 69.4 % (45.0-75.0) Lymphocytes (%) (Auto) 16.4 % (20.0-45.0) L Monocytes (%) (Auto) 10.6 % (1.0-10.0) H Eosinophils (%) (Auto) 2.2 % (0.0-3.0) Basophils (%) (Auto) 1.5 % (0.0-2.0) Sodium Level 140 MMOL/L (136-145) Potassium Level 3.4 MMOL/L (3.5-5.1) L Chloride Level 103 MMOL/L (98-107) Carbon Dioxide Level 31 MMOL/L (21-32) Anion Gap 6 mmol/L (5-15) Blood Urea Nitrogen 16 mg/dL (7-18) Creatinine 0.6 MG/DL (0.55-1.30) Estimat Glomerular Filtration Rate > 60 mL/min (>60) Glucose Level 99 MG/DL (74-106) Calcium Level 7.6 MG/DL (8.5-10.1) L Magnesium Level 2.1 MG/DL (1.8-2.4) Total Bilirubin 0.4 MG/DL (0.2-1.0) Aspartate Amino Transf (AST/SGOT) 72 U/L (15-37) H Alanine Aminotransferase (ALT/SGPT) 73 U/L (12-78) Alkaline Phosphatase 59 U/L (46-116) Total Protein 5.6 G/DL (6.4-8.2) L Albumin 2.5 G/DL (3.4-5.0) L Globulin 3.1 g/dL Albumin/Globulin Ratio 0.8 (1.0-2.7) L Vancomycin Level Trough 18.3 ug/mL (5.0-12.0) H Hepatitis A IgM Antibody Pending Hepatitis A Antibody Total Pending Hepatitis B Surface Antigen Pending Hepatitis B Surface Antibody Pending Hepatitis B Core Total Antibody Pending Hepatitis B Core IgM Antibody Pending Hepatitis C Antibody Pending HIV-1 RNA (PCR) log10 Value Pending HIV-1 RNA Ultraquantitative (PCR) Pending HIV (1&2) Antibody Rapid Negative (NEGATIVE) Microbiology Date/Time Source Procedure Growth Status 07/01/17 23:00 Blood Blood Culture - Preliminary NO GROWTH AFTER 24 HOURS Resulted 07/01/17 23:00 Blood Blood Culture - Preliminary NO GROWTH AFTER 24 HOURS Resulted 07/01/17 22:30 Nasal Nares Influenza Types A,B Antigen (MARSHALL) - Final Complete Intake and Output 07/02/17 07/03/17 19:00 07:00 Intake Total 240 ml Balance 240 ml Intake Oral 240 ml # Voids 5 Assessment/Plan Problem List: (1) Nausea & vomiting Assessment & Plan: due to opiate withdrawal (2) Hypertension Assessment & Plan: continue clonidine (3) SADA (obstructive sleep apnea) Assessment & Plan: Continue CPAP (4) Depression (5) Morbid obesity (6) Fever (7) Intractable diarrhea Assessment & Plan: due to opiate withdrawal (8) Hx of opioid abuse (9) Cellulitis, leg Assessment & Plan: Continue vanco and cefepime per ID Status: not improved ALVA JEAN BAPTISTE Jul 03, 2017 15:24
[2017-07-03] MEDS: Vancomycin 2 GM in D5W 500ml 550 ML IVPB SCH ×2 (16:38→23:49)
[2017-07-03] MEDS: ALPRAZolam 0.5mg tab ORAL PRN (18:09)
[2017-07-03 20:00] VITALS: BP 119/54
[2017-07-03] MEDS ORDERED: Cefepime 2gm ONE (23:00)
[2017-07-04] VITALS: BP 110/60
[2017-07-04 04:00] VITALS: BP 121/64
[2017-07-04] MEDS: ALPRAZolam 0.5mg tab ORAL PRN ×2 (05:31→17:34)
[2017-07-04 08:00] VITALS: BP 131/79
[2017-07-04 08:13] LABS: BASOPHILS % (AUTO) 0.3 % (0.0-2.0); EOSINOPHILS % (AUTO) 2.6 % (0.0-3.0); HEMATOCRIT 39.4 % (42.0-52.0); HEMOGLOBIN 12.9 G/DL (14.2-18.0); LYMPHOCYTES % (AUTO) 31.4 % (20.0-45.0); MEAN CORPUSCULAR VOLUME 88 FL (80-99); MONOCYTES % (AUTO) 8.8 % (1.0-10.0); NEUTROPHILS % (AUTO) 56.9 % (45.0-75.0); PLATELET COUNT 185 K/UL (150-450); RED BLOOD COUNT 4.49 M/UL (4.70-6.10); RED CELL DISTRIBUTION WIDTH 14.3 % (11.6-14.8); WHITE BLOOD COUNT 4.4 K/UL (4.8-10.8)
[2017-07-04 08:22] LABS: ANION GAP 4 mmol/L (5-15); BLOOD UREA NITROGEN 13 mg/dL (7-18); CALCIUM 8.1 MG/DL (8.5-10.1); CARBON DIOXIDE 32 MMOL/L (21-32); CHLORIDE 104 MMOL/L (98-107); CREATININE 0.7 MG/DL (0.55-1.30); POTASSIUM 3.5 MMOL/L (3.5-5.1); SODIUM 140 MMOL/L (136-145)
[2017-07-04] MEDS: Morphine Sulfate 4mg/ml Inj IVP PRN ×3 (08:38→20:59)
[2017-07-04] MEDS: Sertraline 100mg tab ORAL SCH (08:54)
[2017-07-04] MEDS: Heparin 5000 units/ml inj SUBQ SCH ×2 (08:57→20:07)
[2017-07-04] MEDS: Vancomycin 2 GM in D5W 500ml 550 ML IVPB SCH ×3 (10:06→23:14)
[2017-07-04 12:00] VITALS: BP 121/75
[2017-07-04] MEDS: Cefepime HCl 2 GM in NS 110 ML IV SCH ×2 (12:29→20:04)
--- NOTE | 2017-07-04 12:39 | Pulmonology Progress Note ---
Assessment/Plan Assessment/Plan ASSESSMENT Intractable n/v with diarrhea (likely due to heroin w/drawal)-resolved Hx of IVDA/heroin SADA morbid obesity BLE cellulitis with lymphedema MDD hypokalemia PLAN OF CARE [facility] floor Urine tox screen negative ID follows influenza, UA negative CXR negative Fup with bl cx ; need to r/o endocarditiis ( high risk due to IVDA) , prel blood cx negat HIV test empiric abx CPAP at night O2 HHN prn Correct lytes as needed resume a/depressant Reinforce abstinence bl cx prel negative after 48 hrs dc plan for tomorrow if cleared by ID case discussed and evaluated by supervising physician Subjective Allergies: Coded Allergies: No Known Allergies (Unverified , 07/01/17) Subjective on RA sat stable, no signs of distress, denied chest pain Objective Last 24 Hour Vital Signs Date Time Temp Pulse Resp B/P (MAP) Pulse Ox O2 Delivery O2 Flow Rate FiO2 07/04/17 12:00 98.2 73 22 121/75 97 07/04/17 09:08 97.3 07/04/17 09:08 97.3 07/04/17 08:45 Room Air 07/04/17 08:00 97.3 82 18 131/79 94 07/04/17 04:00 98.0 79 21 121/64 97 Room Air 07/04/17 00:00 98.4 79 18 110/60 98 Room Air 07/03/17 20:00 98.6 80 20 119/54 98 Room Air 07/03/17 17:50 96/56 07/03/17 16:53 Room Air 07/03/17 15:22 97.7 75 22 96/56 95 Intake and Output 07/03/17 07/04/17 19:00 07:00 Intake Total 720 ml 780 ml Balance 720 ml 780 ml Intake Oral 720 ml 120 ml IV Total 660 ml # Voids 2 2 Objective General Appearance: no acute distress, other - A/A/O x 3 morbidly obese male HEENT: normocephalic, atraumatic, anicteric, mucous membranes moist Respiratory/Chest: lungs clear - with distant lung soubds , no respiratory distress, no accessory muscle use Cardiovascular: normal peripheral pulses, normal rate - distannt heart sounds , no JVD Abdomen: normal bowel sounds, soft, non tender - obese Extremities: pedal pulses normal, other - lymphedema BLE with erythema, mld tenderness on palaption Neurologic/Psychiatric: no motor/sensory deficits, alert, oriented x 3, responsive Musculoskeletal: normal muscle bulk Microbiology Date/Time Source Procedure Growth Status 07/01/17 23:00 Blood Blood Culture - Preliminary NO GROWTH AFTER 48 HOURS Resulted 07/01/17 23:00 Blood Blood Culture - Preliminary NO GROWTH AFTER 48 HOURS Resulted 07/01/17 22:30 Nasal Nares Influenza Types A,B Antigen (MARSHALL) - Final Complete Laboratory Tests 07/04/17 05:34: White Blood Count 4.4L, Red Blood Count 4.49L, Hemoglobin 12.9L, Hematocrit 39.4L, Mean Corpuscular Volume 88, Mean Corpuscular Hemoglobin 28.7, Mean Corpuscular Hemoglobin Concent 32.6, Red Cell Distribution Width 14.3, Platelet Count 185, Mean Platelet Volume 8.2, Neutrophils (%) (Auto) 56.9, Lymphocytes (% ) (Auto) 31.4, Monocytes (%) (Auto) 8.8, Eosinophils (%) (Auto) 2.6, Basophils ( %) (Auto) 0.3, Sodium Level 140, Potassium Level 3.5, Chloride Level 104, Carbon Dioxide Level 32, Anion Gap 4L, Blood Urea Nitrogen 13, Creatinine 0.7, Estimat Glomerular Filtration Rate > 60, Glucose Level 83, Calcium Level 8.1L Current Medications Medications (Trade) Dose Ordered Sig/Minoo Route PRN Reason Start Time Stop Time Status Last Admin Dose Admin Acetaminophen (Tylenol) 650 mg Q4H PRN ORAL fever 07/03/17 10:30 08/01/17 10:29 Albuterol/ Ipratropium (Albuterol/ Ipratropium) 3 ml Q4H PRN HHN Shortness of Breath 07/03/17 10:30 07/07/17 10:29 Alprazolam (Xanax) 0.5 mg Q8H PRN ORAL For Anxiety 07/03/17 10:30 07/09/17 10:29 07/04/17 05:31 Baclofen (Lioresal) 20 mg TID ORAL 07/03/17 11:00 08/01/17 10:59 07/04/17 08:54 Cefepime HCl 2 gm/ Sodium Chloride 110 ml @ 220 mls/hr EVERY 12 HOURS IV 07/03/17 11:00 07/09/17 10:59 07/04/17 12:29 Dextrose (Dextrose 50%) STAT PRN IV Hypoglycemia 07/03/17 10:30 08/02/17 10:29 Gabapentin (Neurontin) 300 mg THREE TIMES A DAY ORAL 07/03/17 11:00 08/01/17 10:59 07/04/17 08:54 Heparin Sodium (Porcine) (Heparin 5000 units/ml) 5,000 units EVERY 12 HOURS SUBQ 07/03/17 11:00 08/01/17 10:59 07/04/17 08:57 Morphine Sulfate (Morphine Sulfate) 2 mg Q4H PRN IVP Moderate Pain (Pain Scale 4-6) 07/03/17 10:30 07/09/17 10:29 07/04/17 08:38 Nitroglycerin (Ntg) 0.4 mg Every 5 Minutes PRN SL Prn Chest Pain 07/03/17 10:30 08/01/17 00:00 Ondansetron HCl (Zofran) 4 mg Q6H PRN IVP Nausea & Vomiting 07/03/17 12:00 08/01/17 00:00 Polyethylene Glycol (Miralax) 17 gm DAILYPRN PRN ORAL Constipation 07/03/17 10:30 08/02/17 10:29 Quetiapine Fumarate (SEROquel) 100 mg DAILY ORAL 07/03/17 11:00 08/01/17 10:59 07/04/17 08:54 Sertraline HCl (Zoloft) 100 mg DAILY ORAL 07/03/17 11:00 08/01/17 10:59 07/04/17 08:54 Temazepam (Restoril) 15 mg HSPRN PRN ORAL Insomnia 07/03/17 10:30 07/09/17 10:29 07/04/17 00:31 Vancomycin HCl (Vanco rx to dose) 1 ea DAILY PRN MISC per protocol 07/03/17 10:30 08/02/17 10:29 Vancomycin HCl 2 gm/Dextrose 550 ml @ 275 mls/hr Q8H IVPB 07/03/17 16:00 07/07/17 07:59 07/04/17 10:06 Sveta Lyon NP (Vanchtein) Jul 04, 2017 12:39
--- NOTE | 2017-07-04 15:38 | Internal Med Progress Note ---
Subjective Date of Service: Jul 04, 2017 Physician Name MelendrezAlva berg Attending Physician Dereje Martin MD Current Medications Medications (Trade) Dose Ordered Sig/Minoo Route PRN Reason Start Time Stop Time Status Last Admin Dose Admin Acetaminophen (Tylenol) 650 mg Q4H PRN ORAL fever 07/03/17 10:30 08/01/17 10:29 Albuterol/ Ipratropium (Albuterol/ Ipratropium) 3 ml Q4H PRN HHN Shortness of Breath 07/03/17 10:30 07/07/17 10:29 Alprazolam (Xanax) 0.5 mg Q8H PRN ORAL For Anxiety 07/03/17 10:30 07/09/17 10:29 07/04/17 05:31 Baclofen (Lioresal) 20 mg TID ORAL 07/03/17 11:00 08/01/17 10:59 07/04/17 13:01 Cefepime HCl 2 gm/ Sodium Chloride 110 ml @ 220 mls/hr EVERY 12 HOURS IV 07/03/17 11:00 07/09/17 10:59 07/04/17 12:29 Dextrose (Dextrose 50%) STAT PRN IV Hypoglycemia 07/03/17 10:30 08/02/17 10:29 Gabapentin (Neurontin) 300 mg THREE TIMES A DAY ORAL 07/03/17 11:00 08/01/17 10:59 07/04/17 13:01 Heparin Sodium (Porcine) (Heparin 5000 units/ml) 5,000 units EVERY 12 HOURS SUBQ 07/03/17 11:00 08/01/17 10:59 07/04/17 08:57 Morphine Sulfate (Morphine Sulfate) 2 mg Q4H PRN IVP Moderate Pain (Pain Scale 4-6) 07/03/17 10:30 07/09/17 10:29 07/04/17 08:38 Nitroglycerin (Ntg) 0.4 mg Every 5 Minutes PRN SL Prn Chest Pain 07/03/17 10:30 08/01/17 00:00 Ondansetron HCl (Zofran) 4 mg Q6H PRN IVP Nausea & Vomiting 07/03/17 12:00 08/01/17 00:00 Polyethylene Glycol (Miralax) 17 gm DAILYPRN PRN ORAL Constipation 07/03/17 10:30 08/02/17 10:29 Quetiapine Fumarate (SEROquel) 100 mg DAILY ORAL 07/03/17 11:00 08/01/17 10:59 07/04/17 08:54 Sertraline HCl (Zoloft) 100 mg DAILY ORAL 07/03/17 11:00 08/01/17 10:59 07/04/17 08:54 Temazepam (Restoril) 15 mg HSPRN PRN ORAL Insomnia 07/03/17 10:30 07/09/17 10:29 07/04/17 00:31 Vancomycin HCl (Vanco rx to dose) 1 ea DAILY PRN MISC per protocol 07/03/17 10:30 08/02/17 10:29 Vancomycin HCl 2 gm/Dextrose 550 ml @ 275 mls/hr Q8H IVPB 07/03/17 16:00 07/07/17 07:59 07/04/17 10:06 Allergies: Coded Allergies: No Known Allergies (Unverified , 07/01/17) ROS Limited/Unobtainable: No Constitutional: Reports: no symptoms HEENT: Reports: no symptoms Cardiovascular: Reports: no symptoms Respiratory: Reports: no symptoms Gastrointestinal/Abdominal: Reports: no symptoms Genitourinary: Reports: no symptoms Neurologic/Psychiatric: Reports: no symptoms Subjective 26 YO M admitted with nausea, vomiting and fever. Cover for Int Ronnie-Dr Martin Objective Last Vital Signs Date Time Temp Pulse Resp B/P (MAP) Pulse Ox O2 Delivery O2 Flow Rate FiO2 07/04/17 14:00 98.2 07/04/17 12:00 73 22 121/75 97 07/04/17 08:45 Room Air 07/02/17 03:25 2.0 30 Laboratory Tests Test 07/04/17 05:34 White Blood Count 4.4 K/UL (4.8-10.8) L Red Blood Count 4.49 M/UL (4.70-6.10) L Hemoglobin 12.9 G/DL (14.2-18.0) L Hematocrit 39.4 % (42.0-52.0) L Mean Corpuscular Volume 88 FL (80-99) Mean Corpuscular Hemoglobin 28.7 PG (27.0-31.0) Mean Corpuscular Hemoglobin Concent 32.6 G/DL (32.0-36.0) Red Cell Distribution Width 14.3 % (11.6-14.8) Platelet Count 185 K/UL (150-450) Mean Platelet Volume 8.2 FL (6.5-10.1) Neutrophils (%) (Auto) 56.9 % (45.0-75.0) Lymphocytes (%) (Auto) 31.4 % (20.0-45.0) Monocytes (%) (Auto) 8.8 % (1.0-10.0) Eosinophils (%) (Auto) 2.6 % (0.0-3.0) Basophils (%) (Auto) 0.3 % (0.0-2.0) Sodium Level 140 MMOL/L (136-145) Potassium Level 3.5 MMOL/L (3.5-5.1) Chloride Level 104 MMOL/L (98-107) Carbon Dioxide Level 32 MMOL/L (21-32) Anion Gap 4 mmol/L (5-15) L Blood Urea Nitrogen 13 mg/dL (7-18) Creatinine 0.7 MG/DL (0.55-1.30) Estimat Glomerular Filtration Rate > 60 mL/min (>60) Glucose Level 83 MG/DL (74-106) Calcium Level 8.1 MG/DL (8.5-10.1) L Microbiology Date/Time Source Procedure Growth Status 07/01/17 23:00 Blood Blood Culture - Preliminary NO GROWTH AFTER 48 HOURS Resulted 07/01/17 23:00 Blood Blood Culture - Preliminary NO GROWTH AFTER 48 HOURS Resulted 07/01/17 22:30 Nasal Nares Influenza Types A,B Antigen (MARSHALL) - Final Complete Intake and Output 07/03/17 07/04/17 19:00 07:00 Intake Total 720 ml 780 ml Balance 720 ml 780 ml Intake Oral 720 ml 120 ml IV Total 660 ml # Voids 2 2 Objective General Appearance: mild distress, lethargic, obese EENT: PERRL/EOMI, normal ENT inspection Neck: non-tender, normal alignment, supple, normal inspection Cardiovascular: normal peripheral pulses, normal rate, regular rhythm, no gallop/murmur, no JVD Respiratory/Chest: chest wall non-tender, lungs clear, normal breath sounds, no respiratory distress, no accessory muscle use Abdomen: no organomegaly, no mass, hypoactive bowel sounds, tender Extremities: normal range of motion, non-tender 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 Change to oral antibiotic prior to discharge Status: progressing Assessment/Plan Discharge planning ALVA MELENDREZ Jul 04, 2017 15:38
[2017-07-04] MEDS ORDERED: NS 275ml ONE (15:48)
[2017-07-04 16:00] VITALS: BP 137/85
--- NOTE | 2017-07-04 16:53 | Cardiology Report ---
APPROVED REPORT EKG Measurement Heart [id number] Sinus tachycardia Otherwise normal ECG
[2017-07-04 20:00] VITALS: BP 135/78
[2017-07-05] VITALS: BP 130/73
[2017-07-05] MEDS: Morphine Sulfate 4mg/ml Inj IVP PRN ×3 (01:40→15:29)
[2017-07-05 04:00] VITALS: BP 132/76
[2017-07-05 08:00] VITALS: BP 99/54
[2017-07-05 08:05] LABS: ANION GAP 7 mmol/L (5-15); BLOOD UREA NITROGEN 11 mg/dL (7-18); CALCIUM 8.1 MG/DL (8.5-10.1); CARBON DIOXIDE 29 MMOL/L (21-32); CHLORIDE 103 MMOL/L (98-107); CREATININE 0.7 MG/DL (0.55-1.30); POTASSIUM 3.6 MMOL/L (3.5-5.1); SODIUM 139 MMOL/L (136-145)
[2017-07-05 08:09] LABS: BASOPHILS % (AUTO) 0.5 % (0.0-2.0); EOSINOPHILS % (AUTO) 3.8 % (0.0-3.0); HEMATOCRIT 37.1 % (42.0-52.0); HEMOGLOBIN 12.1 G/DL (14.2-18.0); LYMPHOCYTES % (AUTO) 24.8 % (20.0-45.0); MEAN CORPUSCULAR VOLUME 88 FL (80-99); MONOCYTES % (AUTO) 7.9 % (1.0-10.0); PLATELET COUNT 176 K/UL (150-450); RED CELL DISTRIBUTION WIDTH 14.2 % (11.6-14.8); WHITE BLOOD COUNT 5.7 K/UL (4.8-10.8)
[2017-07-05] MEDS: Cefepime HCl 2 GM in NS 110 ML IV SCH (08:09)
[2017-07-05] MEDS: Sertraline 100mg tab ORAL SCH (08:10)
[2017-07-05] MEDS: Heparin 5000 units/ml inj SUBQ SCH (08:20)
[2017-07-05] MEDS: Vancomycin 2 GM in D5W 500ml 550 ML IVPB SCH ×2 (09:21→16:00)
[2017-07-05] MEDS ORDERED: KEFLEX500 MG ORAL (11:24)
--- NOTE | 2017-07-05 11:28 | Internal Med Progress Note ---
Subjective Date of Service: Jul 05, 2017 Physician Name MelendrezAlva berg Attending Physician Dereje Martin MD Current Medications Medications (Trade) Dose Ordered Sig/Minoo Route PRN Reason Start Time Stop Time Status Last Admin Dose Admin Acetaminophen (Tylenol) 650 mg Q4H PRN ORAL fever 07/03/17 10:30 08/01/17 10:29 Albuterol/ Ipratropium (Albuterol/ Ipratropium) 3 ml Q4H PRN HHN Shortness of Breath 07/03/17 10:30 07/07/17 10:29 Alprazolam (Xanax) 0.5 mg Q8H PRN ORAL For Anxiety 07/03/17 10:30 07/09/17 10:29 07/04/17 17:34 Baclofen (Lioresal) 20 mg TID ORAL 07/03/17 11:00 08/01/17 10:59 07/05/17 08:10 Cefepime HCl 2 gm/ Sodium Chloride 110 ml @ 220 mls/hr EVERY 12 HOURS IV 07/03/17 11:00 07/09/17 10:59 07/05/17 08:09 Dextrose (Dextrose 50%) STAT PRN IV Hypoglycemia 07/03/17 10:30 08/02/17 10:29 Gabapentin (Neurontin) 300 mg THREE TIMES A DAY ORAL 07/03/17 11:00 08/01/17 10:59 07/05/17 08:09 Heparin Sodium (Porcine) (Heparin 5000 units/ml) 5,000 units EVERY 12 HOURS SUBQ 07/03/17 11:00 08/01/17 10:59 07/04/17 20:07 Morphine Sulfate (Morphine Sulfate) 2 mg Q4H PRN IVP Moderate Pain (Pain Scale 4-6) 07/03/17 10:30 07/09/17 10:29 07/05/17 08:13 Nitroglycerin (Ntg) 0.4 mg Every 5 Minutes PRN SL Prn Chest Pain 07/03/17 10:30 08/01/17 00:00 Ondansetron HCl (Zofran) 4 mg Q6H PRN IVP Nausea & Vomiting 07/03/17 12:00 08/01/17 00:00 Polyethylene Glycol (Miralax) 17 gm DAILYPRN PRN ORAL Constipation 07/03/17 10:30 08/02/17 10:29 Quetiapine Fumarate (SEROquel) 100 mg DAILY ORAL 07/03/17 11:00 08/01/17 10:59 07/05/17 08:11 Sertraline HCl (Zoloft) 100 mg DAILY ORAL 07/03/17 11:00 08/01/17 10:59 07/05/17 08:10 Temazepam (Restoril) 15 mg HSPRN PRN ORAL Insomnia 07/03/17 10:30 07/09/17 10:29 07/04/17 00:31 Vancomycin HCl (Vanco rx to dose) 1 ea DAILY PRN MISC per protocol 07/03/17 10:30 08/02/17 10:29 Vancomycin HCl 2 gm/Dextrose 550 ml @ 275 mls/hr Q8H IVPB 07/03/17 16:00 07/07/17 07:59 07/05/17 09:21 Allergies: Coded Allergies: No Known Allergies (Unverified , 07/01/17) ROS Limited/Unobtainable: No Constitutional: Reports: no symptoms HEENT: Reports: no symptoms Cardiovascular: Reports: no symptoms Respiratory: Reports: no symptoms Gastrointestinal/Abdominal: Reports: no symptoms Genitourinary: Reports: no symptoms Neurologic/Psychiatric: Reports: no symptoms Subjective 26 YO M admitted with nausea, vomiting and fever. Cover for Int Ronnie-Dr Martin Objective Last Vital Signs Date Time Temp Pulse Resp B/P (MAP) Pulse Ox O2 Delivery O2 Flow Rate FiO2 07/05/17 08:43 97.8 07/05/17 08:00 70 22 99/54 96 Room Air 07/05/17 02:34 30 07/02/17 03:25 2.0 Laboratory Tests Test 07/05/17 05:25 White Blood Count 5.7 K/UL (4.8-10.8) Red Blood Count 4.20 M/UL (4.70-6.10) L Hemoglobin 12.1 G/DL (14.2-18.0) L Hematocrit 37.1 % (42.0-52.0) L Mean Corpuscular Volume 88 FL (80-99) Mean Corpuscular Hemoglobin 28.8 PG (27.0-31.0) Mean Corpuscular Hemoglobin Concent 32.6 G/DL (32.0-36.0) Red Cell Distribution Width 14.2 % (11.6-14.8) Platelet Count 176 K/UL (150-450) Mean Platelet Volume 7.8 FL (6.5-10.1) Neutrophils (%) (Auto) 63.0 % (45.0-75.0) Lymphocytes (%) (Auto) 24.8 % (20.0-45.0) Monocytes (%) (Auto) 7.9 % (1.0-10.0) Eosinophils (%) (Auto) 3.8 % (0.0-3.0) H Basophils (%) (Auto) 0.5 % (0.0-2.0) Sodium Level 139 MMOL/L (136-145) Potassium Level 3.6 MMOL/L (3.5-5.1) Chloride Level 103 MMOL/L (98-107) Carbon Dioxide Level 29 MMOL/L (21-32) Anion Gap 7 mmol/L (5-15) Blood Urea Nitrogen 11 mg/dL (7-18) Creatinine 0.7 MG/DL (0.55-1.30) Estimat Glomerular Filtration Rate > 60 mL/min (>60) Glucose Level 93 MG/DL (74-106) Calcium Level 8.1 MG/DL (8.5-10.1) L Intake and Output 07/04/17 07/05/17 19:00 07:00 Intake Total 1560 ml 1320 ml Balance 1560 ml 1320 ml Intake Oral 240 ml 660 ml IV Total 1320 ml 660 ml # Voids 2 3 Objective General Appearance: mild distress, lethargic, obese EENT: PERRL/EOMI, normal ENT inspection Neck: non-tender, normal alignment, supple, normal inspection Cardiovascular: normal peripheral pulses, normal rate, regular rhythm, no gallop/murmur, no JVD Respiratory/Chest: chest wall non-tender, lungs clear, normal breath sounds, no respiratory distress, no accessory muscle use Abdomen: no organomegaly, no mass, hypoactive bowel sounds, tender Extremities: 1+ edema; normal range of motion, non-tender 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 Change to oral keflex prior to discharge (10) Edema Assessment & Plan: PRN lasix Status: stable Assessment/Plan Discharge planning ALVA MELENDREZ Jul 05, 2017 11:28
--- NOTE | 2017-07-05 11:30 | Infectious Diseases Prog Note ---
Assessment/Plan Assessment/Plan Assessment: Flu-like symptoms, n/v/d- likely due to heroin/opioid withdrawal- r/o acute HIV , bacteremia/endocarditis (given IVDA) -Influenza neg -Bcx NTD -HIV ab neg, VL p -acute hep panel neg; Hep B immune Fever- 2ry to above;resolved -u/a neg -CXR: No acute findings BLE Cellulitis- in setting of lymphedema Heroin abuse Anxiety, panic attacks, MDD, morbid obesity, SADA on CPAP Plan: -Continue IV vanco #/; ok to discharge home on PO keflex 500mg qid to finish course. -Dc Cefepime #4 -07/01 SP Ceftriaxone x1 -f/u cx -f/u HIV VL -Monitor CBC/BMP, temperatures Thank you for this consultation. Will continue to follow along with you. Discussed with RN. Subjective Allergies: Coded Allergies: No Known Allergies (Unverified , 07/01/17) Subjective afebrile in >72hrs at RA no leukocytosis] Bcx NTD Objective Vital Signs Last 24 Hour Vital Signs Date Time Temp Pulse Resp B/P (MAP) Pulse Ox O2 Delivery O2 Flow Rate FiO2 07/05/17 08:43 97.8 07/05/17 08:43 97.8 07/05/17 08:00 97.3 70 22 99/54 96 Room Air 07/05/17 04:00 Room Air 07/05/17 04:00 97.8 80 20 132/76 95 07/05/17 02:34 101 16 99 Facial 30 07/05/17 00:00 Room Air 07/05/17 00:00 97.7 78 20 130/73 94 07/04/17 20:00 Room Air 07/04/17 20:00 97.5 77 22 135/78 96 07/04/17 16:00 97.5 76 20 137/85 95 Room Air 07/04/17 12:00 98.2 73 22 121/75 97 Height (Feet): 5 Height (Inches): 7.00 Weight (Pounds): 440 Objective General Appearance: normal inspection, alert,morbidly obese, Chronically Ill Head: atraumatic ENT: normal ENT inspection, hearing grossly normal, normal voice Neck: normal inspection, full range of motion, supple, no bony tend Respiratory: normal inspection, lungs clear, normal breath sounds, no retraction, no wheezing Cardiovascular regular rate, rhythm, no edema Gastrointestinal: normal inspection, normal bowel sounds, non tender, soft, no guarding, no hernia Genitourinary: no CVA tenderness Musculoskeletal: normal inspection, back normal, normal range of motion, swelling - bilateral edema Skin: other - bilateral lower extremity erythemas, some pustules Laboratory Tests Test 07/05/17 05:25 White Blood Count 5.7 K/UL (4.8-10.8) Red Blood Count 4.20 M/UL (4.70-6.10) L Hemoglobin 12.1 G/DL (14.2-18.0) L Hematocrit 37.1 % (42.0-52.0) L Mean Corpuscular Volume 88 FL (80-99) Mean Corpuscular Hemoglobin 28.8 PG (27.0-31.0) Mean Corpuscular Hemoglobin Concent 32.6 G/DL (32.0-36.0) Red Cell Distribution Width 14.2 % (11.6-14.8) Platelet Count 176 K/UL (150-450) Mean Platelet Volume 7.8 FL (6.5-10.1) Neutrophils (%) (Auto) 63.0 % (45.0-75.0) Lymphocytes (%) (Auto) 24.8 % (20.0-45.0) Monocytes (%) (Auto) 7.9 % (1.0-10.0) Eosinophils (%) (Auto) 3.8 % (0.0-3.0) H Basophils (%) (Auto) 0.5 % (0.0-2.0) Sodium Level 139 MMOL/L (136-145) Potassium Level 3.6 MMOL/L (3.5-5.1) Chloride Level 103 MMOL/L (98-107) Carbon Dioxide Level 29 MMOL/L (21-32) Anion Gap 7 mmol/L (5-15) Blood Urea Nitrogen 11 mg/dL (7-18) Creatinine 0.7 MG/DL (0.55-1.30) Estimat Glomerular Filtration Rate > 60 mL/min (>60) Glucose Level 93 MG/DL (74-106) Calcium Level 8.1 MG/DL (8.5-10.1) L Current Medications Medications (Trade) Dose Ordered Sig/Minoo Route PRN Reason Start Time Stop Time Status Last Admin Dose Admin Acetaminophen (Tylenol) 650 mg Q4H PRN ORAL fever 07/03/17 10:30 08/01/17 10:29 Albuterol/ Ipratropium (Albuterol/ Ipratropium) 3 ml Q4H PRN HHN Shortness of Breath 07/03/17 10:30 07/07/17 10:29 Alprazolam (Xanax) 0.5 mg Q8H PRN ORAL For Anxiety 07/03/17 10:30 07/09/17 10:29 07/04/17 17:34 Baclofen (Lioresal) 20 mg TID ORAL 07/03/17 11:00 08/01/17 10:59 07/05/17 08:10 Cefepime HCl 2 gm/ Sodium Chloride 110 ml @ 220 mls/hr EVERY 12 HOURS IV 07/03/17 11:00 07/09/17 10:59 07/05/17 08:09 Dextrose (Dextrose 50%) STAT PRN IV Hypoglycemia 07/03/17 10:30 08/02/17 10:29 Gabapentin (Neurontin) 300 mg THREE TIMES A DAY ORAL 07/03/17 11:00 08/01/17 10:59 07/05/17 08:09 Heparin Sodium (Porcine) (Heparin 5000 units/ml) 5,000 units EVERY 12 HOURS SUBQ 07/03/17 11:00 08/01/17 10:59 07/04/17 20:07 Morphine Sulfate (Morphine Sulfate) 2 mg Q4H PRN IVP Moderate Pain (Pain Scale 4-6) 07/03/17 10:30 07/09/17 10:29 07/05/17 08:13 Nitroglycerin (Ntg) 0.4 mg Every 5 Minutes PRN SL Prn Chest Pain 07/03/17 10:30 08/01/17 00:00 Ondansetron HCl (Zofran) 4 mg Q6H PRN IVP Nausea & Vomiting 07/03/17 12:00 08/01/17 00:00 Polyethylene Glycol (Miralax) 17 gm DAILYPRN PRN ORAL Constipation 07/03/17 10:30 08/02/17 10:29 Quetiapine Fumarate (SEROquel) 100 mg DAILY ORAL 07/03/17 11:00 08/01/17 10:59 07/05/17 08:11 Sertraline HCl (Zoloft) 100 mg DAILY ORAL 07/03/17 11:00 08/01/17 10:59 07/05/17 08:10 Temazepam (Restoril) 15 mg HSPRN PRN ORAL Insomnia 07/03/17 10:30 07/09/17 10:29 07/04/17 00:31 Vancomycin HCl (Vanco rx to dose) 1 ea DAILY PRN MISC per protocol 07/03/17 10:30 08/02/17 10:29 Vancomycin HCl 2 gm/Dextrose 550 ml @ 275 mls/hr Q8H IVPB 07/03/17 16:00 07/07/17 07:59 07/05/17 09:21 Brianna Ward M.D. Jul 05, 2017 11:30
[2017-07-05 16:01] VITALS: BP 107/62
[2017-07-05] MEDS ORDERED: Tubing IV Secondary IV ONE (16:35)
--- NOTE | 2017-07-05 18:12 | Pulmonology Progress Note ---
Assessment/Plan Problems: (1) Intractable diarrhea (2) Fever (3) Hx of opioid abuse Assessment/Plan improving eating well no diarrhea dc planning in process. Subjective ROS Limited/Unobtainable: No Allergies: Coded Allergies: No Known Allergies (Unverified , 07/01/17) Objective Last 24 Hour Vital Signs Date Time Temp Pulse Resp B/P (MAP) Pulse Ox O2 Delivery O2 Flow Rate FiO2 07/05/17 16:03 97.7 07/05/17 16:01 97.7 80 20 107/62 99 Room Air 07/05/17 14:34 97.8 07/05/17 08:10 85 16 Room Air 21 07/05/17 08:00 97.3 70 22 99/54 96 Room Air 07/05/17 04:00 Room Air 07/05/17 04:00 97.8 80 20 132/76 95 07/05/17 02:34 101 16 99 Facial 30 07/05/17 00:00 Room Air 07/05/17 00:00 97.7 78 20 130/73 94 07/04/17 20:00 Room Air 07/04/17 20:00 97.5 77 22 135/78 96 Intake and Output 07/04/17 07/05/17 19:00 07:00 Intake Total 1560 ml 1320 ml Balance 1560 ml 1320 ml Intake Oral 240 ml 660 ml IV Total 1320 ml 660 ml # Voids 2 3 Objective General Appearance: WN Lines, tubes and drains: peripheral HEENT: normocephalic, atraumatic Neck: non-tender, normal alignment Respiratory/Chest: chest wall non-tender, lungs clear Cardiovascular/Chest: normal peripheral pulses, normal rate Abdomen: normal bowel sounds, non tender Genitourinary/Rectal: normal genital exam, normal rectal exam Skin Exam: normal pigmentation Laboratory Tests 07/05/17 05:25: White Blood Count 5.7, Red Blood Count 4.20L, Hemoglobin 12.1L, Hematocrit 37.1L , Mean Corpuscular Volume 88, Mean Corpuscular Hemoglobin 28.8, Mean Corpuscular Hemoglobin Concent 32.6, Red Cell Distribution Width 14.2, Platelet Count 176, Mean Platelet Volume 7.8, Neutrophils (%) (Auto) 63.0, Lymphocytes (% ) (Auto) 24.8, Monocytes (%) (Auto) 7.9, Eosinophils (%) (Auto) 3.8H, Basophils (%) (Auto) 0.5, Sodium Level 139, Potassium Level 3.6, Chloride Level 103, Carbon Dioxide Level 29, Anion Gap 7, Blood Urea Nitrogen 11, Creatinine 0.7, Estimat Glomerular Filtration Rate > 60, Glucose Level 93, Calcium Level 8.1L AINSLEY CELESTE Jul 05, 2017 18:12
--- NOTE | 2017-07-08 08:05 | Discharge Summary ---
Discharge Summary Hospital Course Date of Admission Jul 01, 2017 at 23:21 Date of Discharge Jul 05, 2017 at 16:36 Admitting Diagnosis GEN WEAKNESS,DEHYDRATION,HYPOXIA HPI Tom Price is a 26 year old male who was admitted on Jul 01, 2017 at 23:21 for General Weakness,Dehydration, Hypoxia Hospital Course dc summary #[id number] Discharge Medications New Medications: Cephalexin* (Keflex*) 500 Mg Capsule 500 MG ORAL EVERY 6 HOURS for 7 Days, #28 CAP 0 Refills Continued Medications: Acetaminophen (Mapap) 325 Mg/10.15 Ml Solution 325 MG PO Q6HR Baclofen* (Baclofen*) 10 Mg Tablet 20 MG ORAL THREE TIMES A DAY, TAB Clonidine Hcl* (Catapres*) 0.1 Mg Tablet 0.1 MG ORAL EVERY 6 HOURS, TAB Gabapentin* (Gabapentin*) 300 Mg Capsule 300 MG ORAL THREE TIMES A DAY, CAP 0 Refills Hydroxyzine Hcl (Hydroxyzine Hcl) 25 Mg Tablet 25 MG PO Q6HR, TAB Naproxen* (Naproxen*) 500 Mg Tablet 500 MG ORAL ONCE, TAB Quetiapine Fumarate* (Quetiapine Fumarate*) 50 Mg Tablet 100 MG ORAL DAILY, TAB Sertraline Hcl* (Sertraline Hcl*) 25 Mg Tablet 100 MG ORAL DAILY, TAB Discharge Condition Upon Discharge: stable Discharge Disposition Patient was discharged to [facility] () Discharge Diagnoses: Camron (Sudhakar)Sveta NP Jul 08, 2017 08:05
--- NOTE | 2017-07-08 23:01 | Discharge Summary 2 SIG ---
DATE OF ADMISSION: 07/01/2017 DATE OF DISCHARGE: 07/05/2017 REASON FOR ADMISSION: 26-year-old male with history of morbid obesity, obstructive sleep apnea, heroin abuse, depression, anxiety presented to emergency department from the sober living with increased nausea, vomiting, diarrhea and fever. The patient reported to stop using heroin about one week ago. In the emergency department, upon evaluation the patient found to be tachycardic, tachypneic, pulse oximetry was 89% on the room air , and temperature was 101.2. Laboratory work revealed no leukocytosis. Stable hemoglobin and hematocrit. Potassium - 2.8. AST slightly elevated - 49. Urine toxicology screen was negative. Urinalysis was negative. Physical exam revealed evidence of bilateral lower extremities cellulitis. The patient was admitted with diagnosis of nausea, vomiting, diarrhea, and fever, opiate dependency, cellulitis of bilateral lower extremities, obstructive sleep apnea, hypertension and morbid obesity. HOSPITAL COURSE: The patient admitted. Pulmonology and ID consults were requested. The patient empirically started on antibiotics due to the fever. The patient was treated symptomatically. According to ID, the patient had flu-like symptoms likely due to the heparin/opioid withdrawal; however, acute HIV, bacteremia/endocarditis needed to be ruled out given history of intravenous drug abuse. Influenza screen was negative. Blood culture were negative. HIV antibody test was negative. Acute hepatitis panel was negative, and showed immunity to hepatitis B, fever resolved. No further diarrhea. Antiemetic provided as needed. The patient was able to tolerate diet. The patient had bilateral lower extremity cellulitis in setting of lymphedema. The patient was on the IV antibiotics while in the hospital and was discharged home on oral Keflex to complete the course as per ID recommendations. The campus administrative assistant closely followed. The patient was on the BiPAP at night time. Psychiatric medications were resumed. Blood pressure was controlled with clonidine. Potassium was replaced and remained stable. DVT prophylaxis provided. Supplemental oxygen provided as needed to keep pulse oximetry above 92%. Pulmonary toilet was on the standby. Prior to discharge, no fever, no diarrhea. Patient was able to tolerate diet. Pulse oximetry was stable on room air. Stable vital signs and blood pressure. The patient was stable for discharge. DISCHARGE MEDICATIONS: See medication reconciliation list. DISCHARGE INSTRUCTIONS: The patient was discharged to sober living facility FINAL DIAGNOSES: 1. Flu-like symptoms with nausea, vomiting, diarrhea and fever likely due to heroin/opioid withdrawal. 2. Opioid dependency. 3. Obstructive sleep apnea. 4. Cellulitis of bilateral lower extremity in setting of chronic lymphedema. 5. Major depressive disorder. 6. Hypertension. 7. Morbid obesity. 8. Anxiety Dereje Martin M.D. Sveta SmithMedisys Health NetworkJohnna N.PGasper DR: APOLONIA JOB#: [id number] CC: [id number]
== END 2017-07-05 16:36 | DRG 897 ==
LOC: EMR 22:02 → 2E 23:21 → EDBEDREQ 07-02 01:36 → 4W 07-03 10:14
DX: F11.23 Opioid dependence with withdrawal (principal); L03.115 Cellulitis of right lower limb; Z68.44 Body mass index [BMI] 60.0-69.9, adult; L03.116 Cellulitis of left lower limb; E66.01 Morbid (severe) obesity due to excess calories; I10 Essential (primary) hypertension; G47.33 Obstructive sleep apnea (adult) (pediatric); R11.2 Nausea with vomiting, unspecified; R19.7 Diarrhea, unspecified; I89.0 Lymphedema, not elsewhere classified; F32.9 Major depressive disorder, single episode, unspecified; E87.6 Hypokalemia; F17.200 Nicotine dependence, unspecified, uncomplicated; R50.9 Fever, unspecified; F41.9 Anxiety disorder, unspecified
CPT/HCPCS: 36415; 71045; 80048; 80053; 80202; 80307; 81003; 83605; 83690; 83735; 84484; 85025; 86703; 86704; 86705; 86708; 86709; 86710; 86803; 87040; 87340; 87517; 87536; 93005; 94640; 94664; 99285; J2405; J7620; J8499